=== PATIENT | male | born 1960 | race Caucasian/White ===

== ENCOUNTER → 2017-05-31 17:33 | Outpatient (CLI) | payer OTHER, SELFPAY ==
[2017-05-31 17:54] LABS: Basophils # 0.1 K/mm3 (0-0.2); Basophils % 0.7 % (0.1-2.0); Eosinophils # 0.4 K/mm3 (0.0-0.4); Eosinophils % 3.5 % (0.1-12.0); Hematocrit 45.7 % (42.0-52.0); Hemoglobin 15.3 g/dL (14.1-18.0); Lymphocytes # 3.2 K/mm3 (0.7-4.5); Lymphocytes % 28.6 K/mm3 (10-50); Mean Corpuscular HGB Conc 33.6 g/dL (31.8-35.4); Mean Corpuscular Volume 92.5 fl (80-94); Mean Platelet Volume 9.5 fl (7.4-10.4); Monocytes # 0.8 K/mm3 (0.1-1.0); Monocytes % 7.3 % (1.7-9.3); Neutrophils # 6.7 K/mm3 (1.8-7.8); Neutrophils % 59.9 % (37.0-80.0); Platelet Count 184 K/mm3 (142-424); Red Blood Count 4.94 M/mm3 (4.60-6.20); Red Cell Distribution Width 12.4 % (11.5-17.5); White Blood Count 11.1 K/mm3 (4.8-10.8)
[2017-05-31 18:34] LABS: Erythrocyte Sedimentation Rate 13 mm/hr (0-20)
[2017-05-31 19:29] LABS: Alanine Aminotransferase 43 U/L (12-78); Albumin Level 4.4 gm/dL (3.4-5.0); Albumin/Globulin Ratio 1.3 (1.1-1.8); Alkaline Phosphatase 84 U/L (46-116); Anion Gap 14.8 mEq/L (5-15); Aspartate Amino Transferase 27 U/L (15-37); Bilirubin,Total 0.7 mg/dL (0.2-1.0); Blood Urea Nitrogen 17 mg/dL (7-18); Calcium 9.4 mg/dL (8.5-10.1); Carbon Dioxide 27 mmol/L (21.0-32.0); Chloride 103 mmol/L (98-107); Chol/HDL Ratio 4.4 (1-3.5); Cholesterol 179 mg/dL (140-200); Creatinine,Serum 0.99 mg/dL (0.70-1.30); Estimated Glomerular Filt Rate 78 ml/min (>60); GFR (African American) 95 ML/MIN (>60); Globulin 3.4 gm/dl (1.3-3.2); Glucose 80 mg/dL (74-106); HDL Cholesterol 41 mg/dL (27-67); LDL Cholesterol 113 mg/dL (0-130); Potassium 4.8 mmoL/L (3.5-5.1); Sodium 140 mmol/L (136-145); Total Protein,Serum 7.8 gm/dL (6.4-8.2); Triglycerides 126 mg/dL (30-200); Uric Acid 7.8 mg/dL (2.6-7.2); VLDL Cholesterol 25 mg/dL (0-40)
== END ==
PROVIDERS: PCP Internal Medicine Adolescent Medicine; Visit Provider Internal Medicine Adolescent Medicine
DX: E78.5 Hyperlipidemia, unspecified (principal); E79.0 Hyperuricemia without signs of inflammatory arthritis and tophaceous disease
CPT/HCPCS: 36415; 80053; 80061; 84550; 85025; 85651

== ENCOUNTER → 2018-01-06 11:27 | Outpatient (CLI) | payer OTHER, SELFPAY ==
--- NOTE | 2018-01-06 | XR_ITS ---
XR chest 2V HISTORY: ITS.REASON: COUGH ORDERING PHYSICIAN: Wero Sharma MD PATIENT AGE: 57 years Technique: PA and lateral chest COMPARISON: None FINDINGS: No acute cardiopulmonary findings. No pneumonia. Suggestion of mild hyperexpansion with Minor chronic changes with slight coarsening markings toward the bases. Nonspecific low-density 9 mm nodule projects over the left second anterior rib end.. Although could be a granuloma No calcification appreciable, confirm such.. If history of smoking as suspected from overall appearance, CT chest to further evaluate this density would be warranted in this age patient with no previous chest film. Alternatively any outside chest films may be helpful to confirm stability as well if they can be obtained The heart is upper normal in size. Normal pulmonary vascularity. The shamika and mediastinal structures satisfactory. No pleural effusion chest wall satisfactory T-spine intact No acute bony abnormalities. IMPRESSION: Nothing definitely acute. No pneumonia. Mild chronic changes with Slight hyperexpansion slight coarsening markings. Incidental 9 mm low-density nodule at the left upper chest . Suggest CT chest to further evaluate, particularly if history of smoking .
[2018-01-06 12:15] LABS: Basophils # 0.1 K/mm3 (0-0.2); Basophils % 0.6 % (0.1-2.0); Eosinophils # 0.3 K/mm3 (0.0-0.4); Eosinophils % 3.2 % (0.1-12.0); Hematocrit 46.1 % (42.0-52.0); Hemoglobin 15.7 g/dL (14.1-18.0); Lymphocytes # 1.5 K/mm3 (0.7-4.5); Lymphocytes % 14.9 K/mm3 (10-50); Mean Corpuscular Hemoglobin 32.3 pg (27.0-31.2); Mean Corpuscular Volume 94.8 fl (80-94); Mean Platelet Volume 8.6 fl (7.4-10.4); Monocytes # 0.7 K/mm3 (0.1-1.0); Monocytes % 6.8 % (1.7-9.3); Neutrophils # 7.3 K/mm3 (1.8-7.8); Neutrophils % 74.4 % (37.0-80.0); Platelet Count 173 K/mm3 (142-424); Red Blood Count 4.87 M/mm3 (4.60-6.20); Red Cell Distribution Width 12.9 % (11.5-17.5); White Blood Count 9.8 K/mm3 (4.8-10.8)
[2018-01-06 13:45] LABS: Alanine Aminotransferase 41 U/L (12-78); Albumin/Globulin Ratio 1.2 (1.1-1.8); Alkaline Phosphatase 99 U/L (46-116); Anion Gap 15.6 mEq/L (5-15); Aspartate Amino Transferase 19 U/L (15-37); Bilirubin,Total 0.6 mg/dL (0.2-1.0); Blood Urea Nitrogen 16 mg/dL (7-18); Calcium 9.2 mg/dL (8.5-10.1); Carbon Dioxide 25 mmol/L (21.0-32.0); Chloride 105 mmol/L (98-107); Chol/HDL Ratio 4.3 (1-3.5); Cholesterol 189 mg/dL (140-200); Creatinine,Serum 0.95 mg/dL (0.70-1.30); Estimated Glomerular Filt Rate 82 ml/min (>60); GFR (African American) 99 ML/MIN (>60); Globulin 3.3 gm/dl (1.3-3.2); Glucose 102 mg/dL (74-106); HDL Cholesterol 44 mg/dL (27-67); LDL Cholesterol 127 mg/dL (0-130); Potassium 4.6 mmoL/L (3.5-5.1); Sodium 141 mmol/L (136-145); Total Protein,Serum 7.3 gm/dL (6.4-8.2); Triglycerides 90 mg/dL (30-200); VLDL Cholesterol 18 mg/dL (0-40)
== END ==
PROVIDERS: PCP Internal Medicine Adolescent Medicine; Referring Provider Internal Medicine Adolescent Medicine; Visit Provider Internal Medicine Adolescent Medicine
DX: I25.10 Atherosclerotic heart disease of native coronary artery without angina pectoris (principal); E78.5 Hyperlipidemia, unspecified; R05 Cough
CPT/HCPCS: 36415; 71046; 80053; 80061; 85025

== ENCOUNTER 2019-01-11 14:59 | Inpatient (IN) ==
[2019-01-11 15:15] LABS: Basophils # 0.1 K/mm3 (0-0.2); Basophils % 0.7 % (0.1-2.0); Eosinophils # 0.3 K/mm3 (0.0-0.4); Eosinophils % 2.6 % (0.1-12.0); Hematocrit 48.6 % (42.0-52.0); Hemoglobin 16.1 g/dL (14.1-18.0); Lymphocytes # 2.1 K/mm3 (0.7-4.5); Lymphocytes % 22.4 % (10-50); Mean Corpuscular HGB Conc 33.2 g/dL (31.8-35.4); Mean Platelet Volume 8.9 fl (7.4-10.4); Monocytes # 0.6 K/mm3 (0.1-1.0); Monocytes % 6.2 % (1.7-9.3); Neutrophils # 6.5 K/mm3 (1.8-7.8); Neutrophils % 68.1 % (37.0-80.0); Platelet Count 202 K/mm3 (142-424); Red Blood Count 5.11 M/mm3 (4.60-6.20); Red Cell Distribution Width 12.6 % (11.5-17.5); White Blood Count 9.5 K/mm3 (4.8-10.8)
[2019-01-11 15:19] LABS: Anion Gap 9.7 mEq/L (5-15); Calcium 9.1 mg/dL (8.5-10.1)
--- NOTE | 2019-01-11 17:24 | History & Physical Report ---
*Admission Date: 01/11/19 *Chief complaint: Chest pain *History of present illness: 58-year-old white male with history of stent placement in 2009, who has been noncompliant with his statin therapy, aspirin therapy and angiotensin receptor marina since May of this year, and has continued to smoke heavily as well as use heavy amounts of alcohol nightly, who presented to my office at the behest of his today with 3 days of worsening chest pain including some rest pain. Chest pain has been accelerating in nature and has been relieved with nitroglycerin. In the office he was felt to be at high risk of unstable angina and transferred from my office to the [facility] Propeller Mechanic. In the Propeller Mechanic he was urgently subjected to left heart catheterization with you below results: ANGIOGRAPHIC RESULTS The left main artery Has an ostial 50 to 70% stenosis The left anterior descending artery Has an ostial 80% stenosis followed by mid vessel concentric 40% stenosis The circumflex artery Is a dominant vessel and has a long concentric 80 to 90% stenosis in a large first obtuse marginal artery. The large second obtuse marginal artery is free of disease The right coronary artery Is a small nondominant vessel and subtotally occluded at mid vessel with AMALIA I-II flow distally The SERRATO ventriculogram reveals Preserved 60% The left ventricular end-diastolic pressure 10 mmHg IMPRESSION Severe ostial left main disease accompanied by severe three-vessel coronary artery disease as described above Preserved and normal ejection fraction Normal left ventricular end-diastolic pressure PLAN 1. Patient will be transferred to [facility] and undergo surgical revascularization 2. Statin therapy goal LDL less than 55 3. Continue nitrates and beta-blockers for angina relief 4. Avoidance of tobacco products 5. Daily aspirin 81 mg Because of bed availability at [facility] patient will be admitted here overnight until bed available to be transferred for CABG procedure. Patient is current pleasant, talkative and pain-free. [facility] History I have reviewed the patient's past medical history: Yes Medical History: Reports:: Atherosclerotic Heart Disease, Coronary Artery Dis ease, Hypertension Denies:: Cancer, Diabetes Mellitus Type 1, Diabetes Mellitus Type 2, Internal Pacemaker, MRSA, Seizures *Have you ever received a pneumonia vaccine?: No *Have you received a flu vaccine this season?: No Other Surgeries: Yes: Other (elbow fracture repair). No: Pacemaker Amputation: No Fractures: Yes (elbow) - *Social History Educational Level: Completed Grade School Smoking Status: Current every day smoker Tobacco Type: cigarettes # Packs/Day (cigarettes): 2 Alcohol Intake: current Alcohol Intake Frequency:: 3 or more drinks per day *Occupational Status:: employed Housing: house Household Members: significant other *Travel in the last 8 weeks: None - Psychiatric History Expresses thoughts of harming self/others: None Suicide Plan Description: No Plan Family Hx:: No significant family history Review of Systems - Review of Systems Review of systems:: pertinent systems reviewed and negative unless documented below Meds Home Medications Medication Instructions Recorded Confirmed Type Aspirin [Aspir 81] 81 mg PO DAILY 01/11/19 01/11/19 History Atorvastatin Calcium [Atorvastatin 40 mg PO HS 01/11/19 01/11/19 History 40mg Tab] Losartan Potassium 100 mg .ROUTE DAILY 01/11/19 01/11/19 History Allergies Allergy/AdvReac Type Severity Reaction Status Date / Time clopidogrel [From Plavix] AdvReac Verified 01/11/19 15:06 Exam Vital signs and Labs for Last 24 Hours: Temp Pulse Resp BP Pulse Ox 97.8 F 74 17 114/70 92 L 01/11/19 16:30 01/11/19 17:00 01/11/19 17:00 01/11/19 17:00 01/11/19 17:00 Laboratory Results - last 24 hr 01/11/19 15:05: WBC 9.5, RBC 5.11, Hgb 16.1, Hct 48.6, MCV 95.0 H, MCH 31.5 H, MCHC 33.2, RDW 12.6, Plt Count 202, MPV 8.9, Neut % (Auto) 68.1, Lymph % (Auto) 22.4, Kane % (Auto) 6.2, Eos % (Auto) 2.6, Baso % (Auto) 0.7, Neut # (Auto) 6.5, Lymph # (Auto) 2.1, Kane # (Auto) 0.6, Eos # (Auto) 0.3, Baso # (Auto) 0.1 01/11/19 15:05: Sodium 137, Potassium 3.7, Chloride 103, Carbon Dioxide 28, Anion Gap 9.7, BUN 17, Creatinine 0.83, Estimated Creat Clear 153, Estimated GFR 95, Est GFR ( Amer) 116, Glucose 111 H, Calcium 9.1 I & O for Last 24 hours: Intake & Output 01/09/19 01/10/19 01/11/19 01/12/19 11:59 11:59 11:59 11:59 Weight 242 lb Narrative: Patient is alert, oriented x3. Pleasant and talkative. Cranial nerves symmetric. No JVD. Lungs are clear, heart rate regular. Abdomen soft. Extremities warm and well-perfused. Assessment and Plan (1) 3-vessel coronary artery disease Current visit: Yes Status: Acute Category: Medical Code(s): I25.10 - Atherosclerotic heart disease of ruby coronary artery without angina pectoris Plan will be to observe in [facility] until bed available for transfer to [facility]. Alcohol withdrawal precautions. Nitroglycerin as needed for pain control.
--- NOTE | 2019-01-12 08:32 | Discharge Summary ---
General - General Admission date:: 01/11/19 Discharge date: 01/12/19 HPI HPI: 58-year-old white male with history of stent placement in 2009, who has been noncompliant with his statin therapy, aspirin therapy and angiotensin receptor marina since May of this year, and has continued to smoke heavily as well as use heavy amounts of alcohol nightly, who presented to my office at the behest of his today with 3 days of worsening chest pain including some rest pain. Chest pain has been accelerating in nature and has been relieved with nitroglycerin. In the office he was felt to be at high risk of unstable angina and transferred from my office to the [facility] Line Up Worker. In the Line Up Worker he was urgently subjected to left heart catheterization with you below results: ANGIOGRAPHIC RESULTS The left main artery Has an ostial 50 to 70% stenosis The left anterior descending artery Has an ostial 80% stenosis followed by mid vessel concentric 40% stenosis The circumflex artery Is a dominant vessel and has a long concentric 80 to 90% stenosis in a large first obtuse marginal artery. The large second obtuse marginal artery is free of disease The right coronary artery Is a small nondominant vessel and subtotally occluded at mid vessel with AMALIA I-II flow distally The SERRATO ventriculogram reveals Preserved 60% The left ventricular end-diastolic pressure 10 mmHg IMPRESSION Severe ostial left main disease accompanied by severe three-vessel coronary artery disease as described above Preserved and normal ejection fraction Normal left ventricular end-diastolic pressure PLAN 1. Patient will be transferred to [facility] and undergo surgical revascularization 2. Statin therapy goal LDL less than 55 3. Continue nitrates and beta-blockers for angina relief 4. Avoidance of tobacco products 5. Daily aspirin 81 mg Because of bed availability at [facility] patient will be admitted here overnight until bed available to be transferred for CABG procedure. Patient is current pleasant, talkative and pain-free. Hospital Course Hospital Course: Patient was observed overnight, no incidence on telemetry monitoring. No chest pain. Radial cath site looked good this morning. Bed has become available at the [facility] at [facility] and patient will be transferred there for evaluation for three-vessel CABG. Objective Vital signs: Temp Pulse Resp BP Pulse Ox 97.8 F 68 19 124/76 94 L 01/12/19 08:00 01/12/19 08:00 01/12/19 08:00 01/12/19 08:00 01/12/19 08:00 Narrative: Alert, oriented x3. Abdomen soft and nontender. Heart rate regular without murmurs. Lungs are clear. Neurologically intact. Skin warm and well-perfused. ENT exam clear. No JVD. Results Labs on day of discharge: Labs from last 24 hours 01/11/19 01/11/19 15:05 15:05 WBC 9.5 RBC 5.11 Hgb 16.1 Hct 48.6 MCV 95.0 H MCH 31.5 H MCHC 33.2 RDW 12.6 Plt Count 202 MPV 8.9 Neut % (Auto) 68.1 Lymph % (Auto) 22.4 Highland % (Auto) 6.2 Eos % (Auto) 2.6 Baso % (Auto) 0.7 Neut # (Auto) 6.5 Lymph # (Auto) 2.1 Highland # (Auto) 0.6 Eos # (Auto) 0.3 Baso # (Auto) 0.1 Sodium 137 Potassium 3.7 Chloride 103 Carbon Dioxide 28 Anion Gap 9.7 BUN 17 Creatinine 0.83 Estimated Creat Clear 153 Estimated GFR 95 Est GFR ( Amer) 116 Glucose 111 H Calcium 9.1 DS: Diagnosis - Discharge Diagnosis (1) 3-vessel coronary artery disease Status: Acute Discharge Plan - Patient Discharge Instructions ACTIVITY: Continue current activity DIET: continue same diet Patient Instructions: DI for Cardiac Catheterization - Follow up Plan Follow up with: Kyaw Shaw [Referring] - Disposition: Xfer Short-Term Hosp Home Medications: Home Medications Medication Instructions Recorded Confirmed Type Aspirin [Aspir 81] 81 mg PO DAILY 01/11/19 01/11/19 History Atorvastatin Calcium [Atorvastatin 40 mg PO HS 01/11/19 01/11/19 History 40mg Tab] Losartan Potassium 100 mg .ROUTE DAILY 01/11/19 01/11/19 History Prescriptions/Medication Reconciliation: Continued Atorvastatin Calcium [Atorvastatin 40mg Tab] 40 mg PO HS Losartan Potassium 100 mg .ROUTE DAILY Aspirin [Aspir 81] 81 mg PO DAILY - Problem Reconciliation Problems Reviewed?: Yes
== END 2019-01-12 09:24 | disposition short-term general hospital (02) | DRG 287 ==
LOC: CATHLAB 14:59 → 2ND 16:45
PROVIDERS: ADMIT Internal Medicine Adolescent Medicine; ATTEND Internal Medicine Adolescent Medicine
CPT/HCPCS: 80048; 85025; 93458; 99152; C1725; C1760; C1769; J1644; Q9967

== ENCOUNTER 2019-02-26 14:21 | Outpatient (RCR) | payer OTHER, SELFPAY | END 2019-04-15 13:20 | disposition home or self-care (01) | LOC: PT 14:21 | PROVIDERS: Visit Provider Thoracic Surgery (Cardiothoracic Vascular Surgery) | DX: Z95.1 Presence of aortocoronary bypass graft (principal) | CPT/HCPCS: 93798 ==

== ENCOUNTER → 2019-04-29 12:10 | Outpatient (CLI) | payer OTHER, SELFPAY ==
[2019-04-29 12:31] LABS: Basophils # 0.1 K/mm3 (0-0.2); Basophils % 0.6 % (0.1-2.0); Eosinophils # 0.3 K/mm3 (0.0-0.4); Hematocrit 49.3 % (42.0-52.0); Hemoglobin 15.6 g/dL (14.1-18.0); Lymphocytes # 2.8 K/mm3 (0.7-4.5); Lymphocytes % 28.9 % (10-50); Mean Corpuscular HGB Conc 31.7 g/dL (31.8-35.4); Mean Corpuscular Hemoglobin 30.6 pg (27.0-31.2); Mean Corpuscular Volume 96.3 fl (80-94); Mean Platelet Volume 10.2 fl (7.4-10.4); Monocytes # 0.6 K/mm3 (0.1-1.0); Monocytes % 6.4 % (1.7-9.3); Neutrophils # 5.8 K/mm3 (1.8-7.8); Neutrophils % 61.1 % (37.0-80.0); Platelet Count 214 K/mm3 (142-424); Red Blood Count 5.12 M/mm3 (4.60-6.20); Red Cell Distribution Width 13.1 % (11.5-17.5); White Blood Count 9.5 K/mm3 (4.8-10.8)
[2019-04-29 14:17] LABS: Alanine Aminotransferase 31 U/L (12-78); Albumin/Globulin Ratio 1.1 (1.1-1.8); Alkaline Phosphatase 95 U/L (46-116); Anion Gap 15.9 mEq/L (5-15); Aspartate Amino Transferase 17 U/L (15-37); Bilirubin,Total 0.4 mg/dL (0.2-1.0); Blood Urea Nitrogen 16 mg/dL (7-18); Calcium 9.3 mg/dL (8.5-10.1); Carbon Dioxide 25 mmol/L (21.0-32.0); Chloride 104 mmol/L (98-107); Chol/HDL Ratio 3.7 (1-3.5); Cholesterol 158 mg/dL (140-200); Creatinine,Serum 0.87 mg/dL (0.70-1.30); Estimated Glomerular Filt Rate 90 ml/min (>60); GFR (African American) 109 ML/MIN (>60); Globulin 3.7 gm/dl (1.3-3.2); Glucose 81 mg/dL (74-106); HDL Cholesterol 43 mg/dL (27-67); LDL Cholesterol 90 mg/dL (0-130); Potassium 4.9 mmoL/L (3.5-5.1); Sodium 140 mmol/L (136-145); Total Protein,Serum 7.7 gm/dL (6.4-8.2); Triglycerides 126 mg/dL (30-200); VLDL Cholesterol 25 mg/dL (0-40)
== END ==
PROVIDERS: Visit Provider Internal Medicine Adolescent Medicine
DX: E78.5 Hyperlipidemia, unspecified (principal); K08.9 Disorder of teeth and supporting structures, unspecified
CPT/HCPCS: 36415; 80053; 80061; 85025

== ENCOUNTER → 2020-01-17 13:26 | Outpatient (CLI) | payer OTHER, SELFPAY ==
--- NOTE | 2020-01-17 13:27 | CA_ITS ---
APPROVED REPORT EXAM: Comprehensive 2D, Doppler, and color-flow Echocardiogram Computer Laboratory Technician: Jyoti Rodriguez CRT Ht: 5 ft 10 in Wt: 244lbs BSA: 2.27 BP: 141/77 mmHg Indications: Obesity, Palpitations, Peripheral Edema, Hyperlipidemia, Hypertension/HDD, stents, CABG, GERD, 2D Dimensions LVOT 2.04 cm (M/F) 1.5-2.5 M-Mode Dimensions RVDd 2.49 cm (0.9-2.6) LVDd 5.67 cm (3.5-5.7) LVDs 4.11 cm (3.5-5.7) IVSd 1.41 cm (0.6-1.1) PWd 1.10 cm (0.6-1.1) EF (Teich) 52.80% FS 27.50% EDV (Teich) 158.10 mL ESV (Teich) 74.70 mL LV Diastology E/A Ratio 0.92 Mitral Valve MV A Velocity 67.00 (40-130 cm/s) Left Ventricle Left atrium is mildly enlarged, left ventricle is normal size, mild concentric left ventricular hypertrophy, visually estimated ejection fraction approximately 50%, there is marked hypokinesis involving the inferior basal and inferior wall. Grade 1 diastolic dysfunction seen without tissue Doppler evidence of raise left atrial pressure. Right Ventricle Right atrium and right ventricular mildly enlarged with normal contractility. Aortic Valve Aortic valve is thickened and calcified, there is no aortic stenosis or aortic insufficiency. Mitral Valve Mitral valve is grossly normal, there is mild mitral regurgitation. Tricuspid Valve Tricuspid valve is grossly normal, there is mild tricuspid regurgitation, tricuspid regurgitation jet velocity is inadequate for calculation of the right ventricular systolic pressure. Pulmonic Valve Pulmonic valve is poorly visualized. Great Vessels Aortic root is normal size. Pericardium No significant pericardial effusion noted. Conclusion 1. Biatrial enlargement, normal left ventricular size, mild concentric left ventricular hypertrophy, visually estimated ejection fraction of 50% with segmental wall motion abnormality described above, grade 1 diastolic dysfunction seen without tissue Doppler evidence of raise left atrial pressure. 2. Mildly enlarged right ventricle with normal contractility. 3. Mild mitral and tricuspid regurgitation. 4. No significant pericardial effusion noted. Electronically signed by : Bijan Delgado, 01/19/2020 21:38:07
== END ==
PROVIDERS: PCP Internal Medicine Adolescent Medicine; Visit Provider Internal Medicine Cardiovascular Disease
DX: I25.10 Atherosclerotic heart disease of native coronary artery without angina pectoris (principal); Z95.1 Presence of aortocoronary bypass graft
CPT/HCPCS: 93306

== ENCOUNTER → 2020-03-18 16:10 | Outpatient (CLI) | payer OTHER, SELFPAY ==
[2020-03-18 17:12] LABS: Basophils # 0.1 K/mm3 (0-0.2); Basophils % 0.4 % (0.1-2.0); Eosinophils # 0.2 K/mm3 (0.0-0.4); Eosinophils % 2.1 % (0.1-12.0); Hematocrit 45.5 % (42.0-52.0); Hemoglobin 15.5 g/dL (14.1-18.0); Lymphocytes # 2.8 K/mm3 (0.7-4.5); Lymphocytes % 24.7 % (10-50); Mean Corpuscular HGB Conc 34.1 g/dL (31.8-35.4); Mean Corpuscular Hemoglobin 31.6 pg (27.0-31.2); Mean Corpuscular Volume 92.6 fl (80-94); Mean Platelet Volume 9.3 fl (7.4-10.4); Monocytes % 8.7 % (1.7-9.3); Neutrophils # 7.4 K/mm3 (1.8-7.8); Neutrophils % 64.1 % (37.0-80.0); Platelet Count 191 K/mm3 (142-424); Red Blood Count 4.91 M/mm3 (4.60-6.20); Red Cell Distribution Width 13.1 % (11.5-17.5); White Blood Count 11.5 K/mm3 (4.8-10.8)
[2020-03-18 17:44] LABS: Alanine Aminotransferase 23 U/L (12-78); Albumin Level 4.2 g/dl (3.5-5.0); Albumin/Globulin Ratio 1.4 (1.1-1.8); Alkaline Phosphatase 94 U/L (38-126); Aspartate Amino Transferase 26 U/L (17-59); Bilirubin,Total 0.7 mg/dl (0.2-1.3); Blood Urea Nitrogen 15 mg/dl (9-20); Calcium 9.9 mg/dl (8.4-10.2); Carbon Dioxide 27 mmol/L (22.0-30.0); Chloride 105 mmol/L (98-107); Chol/HDL Ratio 3.7 (1-3.5); Cholesterol 142 mg/dl (140-200); Estimated Glomerular Filt Rate 87 ml/min (>60); GFR (African American) 105 ML/MIN (>60); Globulin 3.1 g/dL (1.3-3.2); Glucose 86 mg/dl (74-100); HDL Cholesterol 38 mg/dl (40-60); Sodium 140 mmol/L (136-145); Total Protein,Serum 7.3 g/dl (6.3-8.2); Triglycerides 124 mg/dl (30-150); Uric Acid 6.6 mg/dl (3.5-8.5); VLDL Cholesterol 25 mg/dL (0-40)
[2020-03-18 17:55] LABS: Direct LDL Cholesterol 83.48 mg/dL (100-129)
== END ==
PROVIDERS: Visit Provider Internal Medicine Adolescent Medicine
DX: I25.10 Atherosclerotic heart disease of native coronary artery without angina pectoris (principal); E78.5 Hyperlipidemia, unspecified; M10.9 Gout, unspecified
CPT/HCPCS: 36415; 80053; 80061; 84550; 85025

== ENCOUNTER → 2020-07-23 16:11 | Outpatient (CLI) | payer OTHER, SELFPAY ==
[2020-07-23 17:33] LABS: Chloride 107 mmol/L (98-107); Potassium 4.9 mmoL/L (3.5-5.1); Sodium 141 mmol/L (136-145)
[2020-07-23 17:36] LABS: Anion Gap 10.9 mEq/L (5-15); Blood Urea Nitrogen 23 mg/dl (9-20); Calcium 10.3 mg/dl (8.4-10.2); Carbon Dioxide 28 mmol/L (22.0-30.0); Estimated Glomerular Filt Rate 86 ml/min (>60); GFR (African American) 105 ML/MIN (>60); Glucose 76 mg/dl (74-100)
== END ==
PROVIDERS: Visit Provider Internal Medicine Cardiovascular Disease
DX: E78.5 Hyperlipidemia, unspecified (principal); I10 Essential (primary) hypertension; I25.10 Atherosclerotic heart disease of native coronary artery without angina pectoris; I25.2 Old myocardial infarction; Z95.1 Presence of aortocoronary bypass graft
CPT/HCPCS: 36415; 80048

== ENCOUNTER → 2020-10-15 07:04 | Outpatient (CLI) | payer OTHER, SELFPAY ==
[2020-10-15 07:44] LABS: Basophils # 0.1 K/mm3 (0-0.2); Basophils % 0.5 % (0.1-2.0); Eosinophils # 0.2 K/mm3 (0.0-0.4); Eosinophils % 2.2 % (0.1-12.0); Hemoglobin 15.5 g/dL (14.1-18.0); Lymphocytes % 19.3 % (10-50); Mean Corpuscular HGB Conc 34.5 g/dL (31.8-35.4); Mean Corpuscular Hemoglobin 31.7 pg (27.0-31.2); Mean Corpuscular Volume 91.9 fl (80-94); Mean Platelet Volume 9.6 fl (7.4-10.4); Monocytes # 0.8 K/mm3 (0.1-1.0); Neutrophils # 7.1 K/mm3 (1.8-7.8); Neutrophils % 69.8 % (37.0-80.0); Platelet Count 175 K/mm3 (142-424); Red Cell Distribution Width 13.1 % (11.5-17.5); White Blood Count 10.2 K/mm3 (4.8-10.8)
[2020-10-15 08:20] LABS: Alanine Aminotransferase 32 U/L (12-78); Albumin Level 4.2 g/dl (3.5-5.0); Albumin/Globulin Ratio 1.5 (1.1-1.8); Alkaline Phosphatase 85 U/L (38-126); Anion Gap 10.8 mEq/L (5-15); Aspartate Amino Transferase 31 U/L (17-59); Bilirubin,Total 0.6 mg/dl (0.2-1.3); Blood Urea Nitrogen 23 mg/dl (9-20); Calcium 9.1 mg/dl (8.4-10.2); Carbon Dioxide 23 mmol/L (22.0-30.0); Chloride 110 mmol/L (98-107); Chol/HDL Ratio 4.2 (1-3.5); Cholesterol 142 mg/dl (140-200); Estimated Glomerular Filt Rate 99 ml/min (>60); GFR (African American) 120 ML/MIN (>60); Globulin 2.8 g/dL (1.3-3.2); Glucose 104 mg/dl (74-100); HDL Cholesterol 34 mg/dl (40-60); Potassium 4.8 mmoL/L (3.5-5.1); Sodium 139 mmol/L (136-145); Triglycerides 102 mg/dl (30-150); VLDL Cholesterol 20 mg/dL (0-40)
[2020-10-15 08:29] LABS: NT Pro Brain Natriuretic Pep. 154 pg/mL (0-125)
[2020-10-15 08:31] LABS: Direct LDL Cholesterol 80.93 mg/dL (100-129)
[2020-10-15 08:50] LABS: Thyroid Stimulating Hormone 2.03 uIU/mL (0.465-4.68)
[2020-10-15 12:24] LABS: Hemoglobin A1C 5.6 % (4.0-6.0)
== END ==
PROVIDERS: Visit Provider Internal Medicine Adolescent Medicine
DX: I10 Essential (primary) hypertension (principal); E78.5 Hyperlipidemia, unspecified; R60.0 Localized edema; R79.89 Other specified abnormal findings of blood chemistry
CPT/HCPCS: 36415; 80053; 80061; 83036; 83880; 84443; 85025

== ENCOUNTER → 2021-02-01 10:47 | Outpatient (CLI) | payer OTHER, SELFPAY ==
[2021-02-01 11:32] LABS: Basophils # 0.1 K/mm3 (0-0.2); Basophils % 0.9 % (0.1-2.0); Eosinophils # 0.3 K/mm3 (0.0-0.4); Eosinophils % 2.7 % (0.1-12.0); Hematocrit 49.9 % (42.0-52.0); Hemoglobin 16.6 g/dL (14.1-18.0); Lymphocytes # 2.5 K/mm3 (0.7-4.5); Lymphocytes % 25.2 % (10-50); Mean Corpuscular HGB Conc 33.3 g/dL (31.8-35.4); Mean Corpuscular Hemoglobin 32.2 pg (27.0-31.2); Mean Corpuscular Volume 96.6 fl (80-94); Mean Platelet Volume 9.1 fl (7.4-10.4); Monocytes # 0.7 K/mm3 (0.1-1.0); Monocytes % 7.3 % (1.7-9.3); Neutrophils # 6.3 K/mm3 (1.8-7.8); Neutrophils % 64.1 % (37.0-80.0); Platelet Count 180 K/mm3 (142-424); Red Blood Count 5.16 M/mm3 (4.60-6.20); Red Cell Distribution Width 12.7 % (11.5-17.5); White Blood Count 9.8 K/mm3 (4.8-10.8)
[2021-02-01 13:26] LABS: Chloride 104 mmol/L (98-107); Potassium 5.1 mmoL/L (3.5-5.1); Sodium 139 mmol/L (136-145)
[2021-02-01 13:28] LABS: Alanine Aminotransferase 40 U/L (12-78); Aspartate Amino Transferase 36 U/L (17-59); Blood Urea Nitrogen 12 mg/dl (9-20); Estimated Glomerular Filt Rate 99 ml/min (>60); GFR (African American) 120 ML/MIN (>60)
[2021-02-01 13:29] LABS: Albumin Level 4.1 g/dl (3.5-5.0); Albumin/Globulin Ratio 1.5 (1.1-1.8); Alkaline Phosphatase 94 U/L (38-126); Anion Gap 14.1 mEq/L (5-15); Bilirubin,Total 0.3 mg/dl (0.2-1.3); Calcium 9.5 mg/dl (8.4-10.2); Carbon Dioxide 26 mmol/L (22.0-30.0); Cholesterol 136 mg/dl (140-200); Globulin 2.8 g/dL (1.3-3.2); Glucose 85 mg/dl (74-100); HDL Cholesterol 45 mg/dl (40-60); Total Protein,Serum 6.9 g/dl (6.3-8.2); Triglycerides 114 mg/dl (30-150); VLDL Cholesterol 23 mg/dL (0-40)
[2021-02-01 13:40] LABS: Direct LDL Cholesterol 74.88 mg/dL (100-129)
== END ==
PROVIDERS: Visit Provider Internal Medicine Adolescent Medicine
DX: I25.10 Atherosclerotic heart disease of native coronary artery without angina pectoris (principal); E78.5 Hyperlipidemia, unspecified
CPT/HCPCS: 36415; 80053; 80061; 85025

== ENCOUNTER → 2021-05-26 13:51 | Outpatient (CLI) | payer OTHER, SELFPAY ==
[2021-05-26 14:16] LABS: Basophils # 0.1 K/mm3 (0-0.2); Basophils % 1.3 % (0.1-2.0); Eosinophils # 0.3 K/mm3 (0.0-0.4); Eosinophils % 2.4 % (0.1-12.0); Hematocrit 51.2 % (42.0-52.0); Hemoglobin 16.6 g/dL (14.1-18.0); Lymphocytes # 2.8 K/mm3 (0.7-4.5); Lymphocytes % 26.3 % (10-50); Mean Corpuscular HGB Conc 32.5 g/dL (31.8-35.4); Mean Corpuscular Hemoglobin 31.1 pg (27.0-31.2); Mean Corpuscular Volume 95.7 fl (80-94); Mean Platelet Volume 9.4 fl (7.4-10.4); Monocytes # 0.7 K/mm3 (0.1-1.0); Neutrophils # 6.7 K/mm3 (1.8-7.8); Neutrophils % 62.9 % (37.0-80.0); Platelet Count 189 K/mm3 (142-424); Red Blood Count 5.35 M/mm3 (4.60-6.20); White Blood Count 10.7 K/mm3 (4.8-10.8)
[2021-05-26 15:27] LABS: Alanine Aminotransferase 33 U/L (12-78); Albumin Level 4.4 g/dl (3.5-5.0); Albumin/Globulin Ratio 1.6 (1.1-1.8); Alkaline Phosphatase 94 U/L (38-126); Anion Gap 13.5 mEq/L (5-15); Aspartate Amino Transferase 31 U/L (17-59); Bilirubin,Total 0.7 mg/dl (0.2-1.3); Blood Urea Nitrogen 15 mg/dl (9-20); Calcium 9.5 mg/dl (8.4-10.2); Carbon Dioxide 24 mmol/L (22.0-30.0); Chloride 105 mmol/L (98-107); Cholesterol 155 mg/dl (140-200); Estimated Glomerular Filt Rate 99 ml/min (>60); GFR (African American) 119 ML/MIN (>60); Globulin 2.7 g/dL (1.3-3.2); Glucose 84 mg/dl (74-100); HDL Cholesterol 39 mg/dl (40-60); Potassium 4.5 mmoL/L (3.5-5.1); Sodium 138 mmol/L (136-145); Total Protein,Serum 7.1 g/dl (6.3-8.2); Triglycerides 135 mg/dl (30-150); VLDL Cholesterol 27 mg/dL (0-40)
[2021-05-26 15:39] LABS: Direct LDL Cholesterol 91.52 mg/dL (100-129)
[2021-05-26 16:15] LABS: Hemoglobin A1C 5.8 % (4.0-6.0)
== END ==
PROVIDERS: Visit Provider Internal Medicine Adolescent Medicine
DX: I25.10 Atherosclerotic heart disease of native coronary artery without angina pectoris (principal); E78.5 Hyperlipidemia, unspecified; E11.9 Type 2 diabetes mellitus without complications; Z79.84 Long term (current) use of oral hypoglycemic drugs
CPT/HCPCS: 36415; 80053; 80061; 83036; 85025

== ENCOUNTER → 2021-08-18 12:21 | Outpatient (CLI) | payer OTHER, SELFPAY | PROVIDERS: Visit Provider Surgery | DX: Z01.812 Encounter for preprocedural laboratory examination (principal); Z11.52 Encounter for screening for COVID-19; Z12.11 Encounter for screening for malignant neoplasm of colon | CPT/HCPCS: C9803; U0003; U0005 ==

== ENCOUNTER 2021-08-20 10:23 | Day surgery (SDC) | payer OTHER, SELFPAY ==
[2021-08-17 09:51] VITALS: BMI 36.9
[2021-08-20 10:39] VITALS: BP 164/81; PULSE 81; RESP 18; TEMP 36.6; O2SAT 97
[2021-08-20 12:15] VITALS: O2SAT 97
--- NOTE | 2021-08-20 12:24 | P.PN_ITS ---
[facility] Anesthesia Checklist - Patient Identification Patient Identification: Arm Band, Verbal (Name & ) - Structural Data Admitted From: Home Planned Operative Procedure/s: Colonoscopy Consent for Planned Operative Procedure(s) Verified: Yes Verified Documents: Surgical Consent - NPO Status Verified Time NPO: 09:00 - Airway Assessment C-Spine Mobility Assessed: Yes TMJ Mobility Assessed: Yes Dentition: Good Dentition - Neurological Assessment Level of Consciousness: Awake, Alert, Appropriate - Anesthesia Plan Anesthesia Risk discussed: Yes ASA Class: III Anesthesia Type: MAC [facility] History I have reviewed the patient's past medical history: Yes Medical History: Reports:: Atherosclerotic Heart Disease, Atrial Fibrillation, Coronary Artery Disease, Gastroesophageal Reflux Disease(GERD), Hyperlipidemia, Hypertension, Palpitations Denies:: Cancer, Diabetes Mellitus Type 1, Diabetes Mellitus Type 2, Internal Pacemaker, MRSA, Seizures *Have you ever received a pneumonia vaccine?: Yes *Have you received a flu vaccine this season?: Yes Anesthesia experience/problems:: no issues Other Surgeries: Yes: Cardiac Catheterization, Cardiac Surgery, Other (elbow fracture repair). No: Pacemaker Amputation: No Fractures: Yes (elbow orif) - *Social History Last grade of school completed: High school graduate Smoking Status: Current every day smoker Tobacco Type: cigarettes # Packs/Day (cigarettes): 1 Alcohol Intake: former Alcohol Intake Frequency:: 3 or more drinks per day Substance Use Type: denies use *Occupational Status:: employed Housing: house Household Members: significant other *Travel in the last 8 weeks: None Family Hx:: No significant family history
--- NOTE | 2021-08-20 13:44 | HMH.SCOPE ---
- Procedure: Date: 08/20/21 Patient Date of :: 1960 Procedure Performed:: Total colonoscopy with numerous polypectomy Indications:: Patient is a 61-year-old male referred by Dr. Wero Sharma for colonoscopy. He has never had prior colonoscopy. He underwent Cologuard testing which was positive. Performing Provider:: Darrel Wyatt MD Referring Provider:: Wero Sharma MD Sedation:: MAC sedation Procedure:: Patient was taken to endoscopy procedure room. He was positioned in lateral decubitus position. Adequate intravenous sedation was achieved with anesthesia titration of propofol. Digital examination was performed which revealed normal sphincter tone. He did have an enlarged prostate somewhat asymmetrically with the right lobe being somewhat greater than the left. Variable stiffness Olympus colonoscope was inserted via the anus. It was advanced to the cecum. There was some particulate liquid stool throughout the colon. Initially visualization was fair but decent visualization was achieved with thorough irrigation and suctioning. As the colonoscope was slowly withdrawn through the colon multiple small polyps were encountered. These were removed by variety of technique. Please see findings below. He did have some diverticulosis. Retroflexion revealed no evidence of any pathologic internal hemorrhoids. Colonoscope was withdrawn. Note: Procedure time from insertion of colonoscope to removal was 81 minutes. Findings:: Cecal polyp. Removed with cold snare. Ascending colon polyp x2 removed with snare and biopsy. Polyp removed with snare appears sessile possibly consistent with relatively large serrated adenoma. Transverse colon polyp x3 removed with cold snare Descending colon polyp x6 removed with cold snare Sigmoid colon polyp x4 removed with cold snare Distal sigmoid polyp possible traction polyp, removed with hot snare Hyperplastic appearing rectosigmoid polyps x6 3 removed with biopsy and 3 removed with cold snare Rectal polyp x3 removed with cold snare He had a total of 26 polyps removed. Most concerning was actually the cecal polyp removed with snare. Some scattered diverticulosis Mildly asymmetrically enlarged prostate Recommendations:: Follow-up anoscopy pending pathology Complications:: None immediately apparent Estimated blood obtained (mL): 3
[2021-08-20 13:46] VITALS: BP 137/73; PULSE 67; RESP 16; TEMP 36.3; O2SAT 97
[2021-08-20 13:56] VITALS: BP 137/73; PULSE 63; RESP 16; TEMP 36.3; O2SAT 97
[2021-08-20 14:06] VITALS: BP 143/90; PULSE 66; RESP 16; O2SAT 96
[2021-08-20 14:16] VITALS: BP 151/66; PULSE 66; RESP 16; O2SAT 98
== END 2021-08-20 14:16 | disposition home or self-care (01) ==
LOC: OUTP 10:24
PROVIDERS: PCP Internal Medicine Adolescent Medicine; Visit Provider Surgery
PROC: 0DJD8ZZ Inspection of Lower Intestinal Tract, Via Natural or Artificial Opening Endoscopic (ICD-10-PCS; CPT 45385; principal; 2021-08-20 11:30)
DX: R19.5 Other fecal abnormalities (principal); K63.5 Polyp of colon; K57.30 Diverticulosis of large intestine without perforation or abscess without bleeding; N40.0 Benign prostatic hyperplasia without lower urinary tract symptoms; I25.10 Atherosclerotic heart disease of native coronary artery without angina pectoris; I48.91 Unspecified atrial fibrillation; K21.9 Gastro-esophageal reflux disease without esophagitis; E78.5 Hyperlipidemia, unspecified; I10 Essential (primary) hypertension; R00.2 Palpitations; Z72.0 Tobacco use; Z88.8 Allergy status to other drugs, medicaments and biological substances; Z79.82 Long term (current) use of aspirin; Z79.899 Other long term (current) drug therapy
CPT/HCPCS: 45385; J2704

== ENCOUNTER 2022-12-17 09:46 | Emergency (ER) | payer MEDICAID, SELFPAY ==
[2022-12-17 09:47] VITALS: BP 133/77; PULSE 60; RESP 16; TEMP 36.7; O2SAT 97; BMI 36.1
--- NOTE | 2022-12-17 10:07 | EXP.UTC ---
Discharge Plan Disposition Patient Disposition: Home, Self-Care Condition: Good Prescriptions Prescriptions: New ciprofloxacin HCl 0.3 % drops See Rx Instructions .ROUTE .COMPLEX Qty: 5 0RF Rx Instructions: put 1 drp in left eye every 2hr x2days; then 4 times/day x5days No Action nitroglycerin 0.4 mg tablet, sublingual 0.4 mg SUBLINGUAL Q5M PRN (Reason: chest pain) Qty: 25 0RF Rx Instructions: until response; do not exceed 3 doses per episode metoprolol tartrate 25 mg tablet 37.5 mg PO BID atorvastatin 40 MG tablet 40 mg PO HS aspirin 81 MG tablet,delayed release (DR/EC) 81 mg PO DAILY losartan 25 MG tablet See Rx Instructions .Route .COMPLEX Rx Instructions: TAKE ONE TABLET BY MOUTH EVERY DAY peg 3350-electrolytes 4,000 ML recon soln 240 ml PO Q10M Rx Instructions: until fecal effluent is clear Referrals Follow up/Referrals: Wero Sharma MD [Primary Care Provider] - See instructions Activity Restrictions/Add. Instructions Additional Instructions/Restrictions: Use the eye drops as directed. Strict hand washing in the house hold, because conjunctivitis is very contagious. Follow up with your regular doctor. GO TO THE ER FOR ANY WORSENING SYMPTOMS OR CONCERNS Clinical Impressions Clinical Impression: Conjunctivitis of left eye Instructions Patient Instructions: How to Instill Eye Drops, Conjunctivitis, DI for Conjunctivitis Discharge ED Provider: Santiago Tony [facility] General Stated complaint: eyes red,itchy,pain Mode of Arrival: Ambulatory Source of Information: Patient Limitations: No Limitations Time Seen by Provider: 12/17/22 10:07 HEENT Symptoms (Recalled from RN notes): Yes Resp Symptoms (Recalled from RN notes): No Skin Symptoms (Recalled from RN notes): No MS Symptoms (Recalled from RN notes): No Functional Status (Recalled from RN notes): wnl History of Present Illness Provider Complaint: Patient reports his left eye is red, swollen and has been runny for 2 days now. Related Data Home Medications Medication Instructions Recorded Confirmed aspirin 81 mg tablet,delayed 81 mg PO DAILY Heart disease 01/11/19 09/21/21 release atorvastatin 40 mg tablet 40 mg PO HS Cholesterol 01/11/19 09/21/21 metoprolol tartrate 25 mg tablet 37.5 mg PO BID High blood pressure 01/07/20 09/21/21 losartan 25 mg tablet See Rx Instructions .Route 08/17/21 09/21/21 .COMPLEX High blood pressure peg 3350-electrolytes 236 240 ml PO Q10M bowel 08/17/21 09/21/21 gram-22.74 gram-6.74 gram-5.86 gram solution Previous Rx's Medication Instructions Recorded nitroglycerin 0.4 mg sublingual 0.4 mg sublingual Q5M PRN chest 02/26/19 tablet pain #25 tabs ciprofloxacin HCl 0.3 % eye drops See Rx Instructions ophthalmic 12/17/22 (eye) .COMPLEX #5 mL Allergies Allergy/AdvReac Type Severity Reaction Status Date / Time clopidogrel [From Plavix] AdvReac Verified 09/21/21 09:07 Worker's Comp Is this a Worker's Comp case?: No [facility] Disclaimer: The information contained in this section may have been updated after the patient was seen, as this information can be updated by other users. Social History Smoking Status: Current every day smoker tobacco type: cigarettes packs per day: 1 alcohol intake: former substance use type: denies use current occupational status: employed Travel in the last 8 weeks: None household members: significant other housing: house caffeine: Yes ROS Obtained: Yes All systems reviewed & no additional complaints except as documented Constitutional Constitutional: Reports chills and Reports fever(s) Eyes Eyes: Reports eye discharge ENT Ears, Nose, Mouth, and Throat: Reports as per HPI Cardiovascular Cardiovascular: Denies chest pain Respiratory Respiratory: Denies chest congestion and Reports cough Gastrointestinal
[2022-12-17 10:34] VITALS: BP 133/77; PULSE 60; RESP 16; TEMP 36.7; O2SAT 97
== END 2022-12-17 10:35 | disposition home or self-care (01) ==
PROVIDERS: Emergency Provider Nurse Practitioner Family; PCP Internal Medicine Adolescent Medicine
DX: H10.32 Unspecified acute conjunctivitis, left eye (principal); F17.210 Nicotine dependence, cigarettes, uncomplicated
CPT/HCPCS: 99204; 99212; G0463

== ENCOUNTER → 2022-12-30 14:05 | Outpatient (CLI) | payer OTHER, SELFPAY ==
--- NOTE | 2022-12-30 14:11 | CT_ITS ---
FINAL REPORT TECHNIQUE: Axial images were obtained from the lung apex to the mid abdomen by computed tomography. This study was performed with techniques to keep radiation doses as low as reasonably achievable (ALARA). Individualized dose reduction techniques using automated exposure control or adjustment of mA and/or kV according to the patient's size were employed. CLINICAL HISTORY: NICOTINE DEPENDANCE, smoker 1.5 pdd x 30 years hx-CAD- bypass FINDINGS: CHEST CT LOW DOSE CTDI vol (mGy): 2.90 DLP (mGy-cm): 99.25 The patient is status post median sternotomy. There is severe coronary artery calcification. There is no axillary adenopathy. There is no hilar or mediastinal adenopathy. The heart is normal in size. There is no pericardial or pleural effusion. Lung window images demonstrate no suspicious infiltrate or nodule. There is a calcified granuloma in the left lung. There is mild atelectasis or scarring. Limited images of the upper abdomen are unremarkable. IMPRESSION: Lung RADS category 1. Recommend 12 month follow-up low-dose chest CT. Reviewed, Interpreted and Dictated by Darrel Navas III, MD Transcribed by Milly Jennings Authenticated and [facility]
== END ==
PROVIDERS: PCP Internal Medicine Adolescent Medicine; Visit Provider Internal Medicine Adolescent Medicine
DX: Z87.891 Personal history of nicotine dependence (principal); Z12.2 Encounter for screening for malignant neoplasm of respiratory organs
CPT/HCPCS: 71271

== ENCOUNTER → 2023-03-16 11:01 | Outpatient (CLI) | payer OTHER, SELFPAY ==
--- NOTE | 2023-03-16 11:01 | NM_ITS ---
APPROVED REPORT Exam: Nuclear Stress Test Indication: soa Patient Location: Outpatient Stress Tech: Mariama Pickard MS Tech:Luda Meyers FREDDY RT(R)(N) Ht: 5 ft 10 in Wt: 260 lbs HR: 75 bpm BP: 116/81 mmHg BSA: 2.33 m2 Rhythm: NSR TID: 0.95 BMI: 37.3 History: soa Procedure: Patient exercised on Emmanuel protocol 6:01 minutes and sec, resting heart rate 75 bpm, resting blood pressure 116/81 mmHg, with exercise maximum heart rate achived was 119 bpm which is 75 % of the maximum predicted heart rate and blood pressure was 184/80 mmHg. Test was stopped due to fatigue. Patient denied any complaint of chest pain. Patient has Average exercise capacity, achieved 7.0 METs of workload on treadmill, the blood pressure response to exercise was Normal. Cardiac Stress and Resting SPECT Images: Cardiac Stress and Resting SPECT images were obtained using technetium 99m Myoview 32.3 mCi stress and 10.67 mCi at rest. Resting and stress imaging in supine and prone positions demonstrate a large sized, severe, fixed perfusion defect in the inferior and inferolateral LV burger. Gated imaging demonstrates mild to moderate reduction in LV systolic function. There is akinesis of the inferior and lateral LV bruger. LVEF is calculated at 40%. Conclusion: Suboptimal stress test in the setting of inability to achieve target HR. Large sized, severe, fixed perfusion defect in the inferior and inferolateral LV burger. No evidence of reversible ischemia. Gated imaging demonstrates mild to moderate reduction in LV systolic function. There is akinesis of the inferior and lateral LV burger. LVEF is calculated at 40%. As this was a suboptimal stress test (inability to achieve target HR), this test is overall considered nondiagnostic to rule out ischemia. Further evaluation for ischemia is recommended (e.g. pharmacologic stress test), if clinically indicated. Electronically signed by : Lucía Pierce MD 03/22/2023 13:25:45
--- NOTE | 2023-03-16 13:03 | CA_ITS ---
APPROVED REPORT EXAM: Comprehensive 2D, Doppler, and color-flow Echocardiogram Invas Tech: Myrtle Mora RVT Ht: 5 ft 10 in Wt: 262lbs BSA: 2.34 BP: 142/82 mmHg Indications: SOA,CAD,A-FIB,EDEMA,HTN,HLD,SMOKER,CABG 2D Dimensions LVOT 2.21 cm (M/F) 1.5-2.5 LA Volume 56.00 mL LA Volume Index 23.93 mL/m2 (M/F) 16-34 M-Mode Dimensions RVDd 2.58 cm (0.9-2.6) LA Diam 3.54 cm (1.9-4.0) LVDd 4.44 cm (3.5-5.7) Ao Diam 3.79 cm (2.0-3.7) LVDs 3.38 cm (3.5-5.7) IVSd 1.27 cm (0.6-1.1) PWd 0.76 cm (0.6-1.1) EF (Teich) 47.80% FS 23.90% EDV (Teich) 89.60 mL TAPSE 1.66 (<1.7) ESV (Teich) 46.80 mL LV Diastology E Decel Time 210.00 (160-240 msec) E/A Ratio 0.6 MED E' 5.50 (< 7 cm/sec) E'/MED E' Ratio 9.02 (>14) LAT E' 11.10 (<10 cm/sec) E/LAT E' Ratio 4.47 (>14) Aortic Valve LVOT Max 108.00 (70-110 cm/s) LVOT VTI 22.35 cm AoV Peak Alejandro. 145.00 (50-130 cm/s) AO Peak GR. 8.40 mmHg AO Mean GR. 3.40 (<5 mmHg) AO VTI 23.92 (18-25 cm) RONEN (VTI) 3.58 (2.5-4.5 cm2) Mitral Valve MV E Max Alejandro. 50.00 (40-130 cm/s) MV A Velocity 88.00 (40-130 cm/s) E/A Ratio 0.57 MV Decel. Time 210.00 (160-240 ms) MV PHT 62.00 ms Pulmonary Valve PV Peak Velocity 76.00 (50-150 cm/s) Tricuspid Valve TR P. Velocity 202.00 cm/s RAP Estimate 10.00 mmHg RVSP 26.40 mmHg Left Ventricle The left ventricle is normal size. Left ventricular systolic function is mildly decreased. There is increased LV wall thickness. There is moderate to severe hypokinesis of the basal to mid inferior, inferolateral, and inferoseptal LV burger. Transmitral Doppler flow pattern suggests impaired LV relaxation. LVEF is 40-45%. Right Ventricle Right ventricle is mildly dilated. Right ventricle is mildly hypokinetic. Atria The left atrium size is normal. The right atrium size is normal. There is no Doppler evidence of interatrial shunt. Aortic Valve The aortic valve leaflets are mildly thickened. There is no aortic valvular stenosis. Trace aortic regurgitation. Mitral Valve The mitral valve leaflets are mildly thickened. No evidence of mitral valve stenosis. Trace mitral regurgitation. Tricuspid Valve The tricuspid valve leaflets are thin and pliable. Trace tricuspid regurgitation. RVSP is 15-20 mmHg. Pulmonic Valve The pulmonary valve is normal in structure. Trace pulmonic regurgitation. Great Vessels The aortic root is normal in size. The ascending aorta is normal in size. IVC is normal in size and collapses >50% with inspiration. Pericardium There is no pericardial effusion. Conclusion Mildly reduced LV systolic function. LVEF is 40-45%. Moderate to severe hypokinesis of the basal to mid inferior, inferolateral, and inferoseptal LV burger. Mildly dilated RV with mild reduction in RV systolic function. No significant valvular stenosis or regurgitation. Compared to prior study from 2019, the LVEF is now reduced. Electronically signed by : Lucía Pierce MD 03/18/2023 22:29:28
--- NOTE | 2023-03-16 13:42 | CA_ITS ---
APPROVED REPORT Exam: Exercise Treadmill Technologist: Mariama Bella, Ht: 5 ft 10 in Wt: 262 lbs BSA: 2.34 m2 HR: 67 bpm BP: 126/72 mmHg Rhythm: NSR Medical History Medications: Aspirin,,,,, Losartan,,,,, Metoprolol Tartrate,,,,, Atorvastatin,,,,, Nitroglycerin,,,,, Sitagliptin,,,,, Ciprofloxacin HCI,,,,, Phosphate,,,,, Stress Test Details Test: Emmanuel HR Resting HR: 75 bpm Max Heart Rate (APMHR): 159 bpm Max HR Achieved: 119 bpm Target HR (85% APMHR): 135 bpm % of APMHR: 75 Recovery HR: 84 bpm HR response to stress: Blunted HR response to stress BP Resting BP: 116.0/81.0 mmHg Max BP: 184.0/80.0 mmHg Recovery BP: 135.0/73.0 mmHg BP response to stress: Normal blood pressure response to stress. ECG Resting ECG: NSR, cannot R/O old inferolateral MS Stress ECG: New T wave changes in inferior leads Arrhythmia: Occasional PVCs Recovery ECG: Return to baseline within 3 minutes of recovery. Occasional PVCs. Clinical Exercise duration: 06:01 min Highest Stage Achieved: II Exercise capacity: 7.0 METs Overall Exercise Capacity for Age: Average Stress ECG Conclusion This is a suboptimal study in the setting of inability to achieve target HR. The patient was able to walk for a total of 6:00 on Emmanuel Protcol. He achieved a total of 7 METS. He has blunted HR, but normal BP, response to exercise. He has average exercise capacity compared to age and sex matched peers. Max HR: 119 % of PM: 75% Max BP: 184/80 METs: 7.0 Test stopped due to: SOA, Leg fatigue Symptoms: No CP. Arrhythmias/Ectopy: Rate PVC. ST-T Changes: T wave inversions in lead III & aVF. Conclusion: Equivocal EKG changes for ischemia. Myoview images reported separately. Test Summary REST . . . . . . . Sitting REST . . . . . . . Standing REST 04:23 0.0 0.0 75 . 116/ 81 . . Stage 1 01:00 10.0 1.7 88 . . . . Stage 1 02:00 10.0 1.7 95 . . . . Stage 1 03:00 10.0 1.7 98 . 184/ 80 . . Stage 2 01:00 12.0 2.5 108 . . . . Stage 2 02:00 12.0 2.5 117 . . . . Stage 2 03:00 12.0 2.5 118 . . . . Stage 3 00:01 14.0 3.4 118 . . . Stop exercise at 06:01 RECOVERY 01:00 0.0 0.0 105 . . . . RECOVERY 02:00 0.0 0.0 95 . . . . RECOVERY 03:00 0.0 0.0 93 . 168/ 82 . . RECOVERY 04:00 0.0 0.0 86 . 168/ 82 . . RECOVERY 05:00 0.0 0.0 84 . 153/ 74 . . RECOVERY 05:35 0.0 0.0 85 . 135/ 73 . . Electronically signed by : Lucía Pierce MD 03/22/2023 13:21:33
== END ==
LOC: RAD 11:01
PROVIDERS: PCP Internal Medicine Adolescent Medicine; Visit Provider Nurse Practitioner Family
DX: I25.10 Atherosclerotic heart disease of native coronary artery without angina pectoris (principal); R06.02 Shortness of breath; I10 Essential (primary) hypertension; Z72.0 Tobacco use
CPT/HCPCS: 78452; 93017; 93306; A9502

== ENCOUNTER → 2023-03-27 07:34 | Outpatient (CLI) | payer OTHER, SELFPAY ==
[2023-03-27 07:54] LABS: Basophils # 0.1 K/mm3 (0-0.2); Basophils % 0.8 % (0.1-2.0); Eosinophils # 0.3 K/mm3 (0.0-0.4); Eosinophils % 2.8 % (0.1-12.0); Hematocrit 52.6 % (42.0-52.0); Hemoglobin 17.9 g/dL (14.1-18.0); Lymphocytes # 2.7 K/mm3 (0.7-4.5); Lymphocytes % 24.2 % (10-50); Mean Corpuscular Hemoglobin 32.9 pg (27.0-31.2); Mean Corpuscular Volume 96.7 fl (80-94); Mean Platelet Volume 9.4 fl (7.4-10.4); Monocytes # 0.7 K/mm3 (0.1-1.0); Monocytes % 6.4 % (1.7-9.3); Neutrophils # 7.2 K/mm3 (1.8-7.8); Neutrophils % 65.8 % (37.0-80.0); Platelet Count 148 K/mm3 (142-424); Red Blood Count 5.44 M/mm3 (4.60-6.20); Red Cell Distribution Width 12.9 % (11.5-17.5)
[2023-03-27 08:45] LABS: Alanine Aminotransferase 34 U/L (12-78); Albumin Level 4.4 g/dl (3.5-5.0); Albumin/Globulin Ratio 1.4 (1.1-1.8); Alkaline Phosphatase 81 U/L (38-126); Anion Gap 15.9 mEq/L (5-15); Aspartate Amino Transferase 36 U/L (17-59); Bilirubin,Direct 0.1 mg/dl (0.0-0.4); Bilirubin,Indirect 0.4 mg/dL (0.0-0.9); Bilirubin,Total 0.5 mg/dl (0.2-1.3); Bilirubin,Unconjugated 0.4 mg/dL (0.0-1.1); Blood Urea Nitrogen 16 mg/dl (9-20); Calcium 9.4 mg/dl (8.4-10.2); Carbon Dioxide 26 mmol/L (22.0-30.0); Chloride 103 mmol/L (98-107); Chol/HDL Ratio 4.3 (1-3.5); Cholesterol 138 mg/dl (140-200); Estimated Glomerular Filt Rate 98 ml/min (>60); GFR (African American) 119 ML/MIN (>60); Globulin 3.2 g/dL (1.3-3.2); Glucose 104 mg/dl (74-100); HDL Cholesterol 32 mg/dl (40-60); Potassium 4.9 mmoL/L (3.5-5.1); Sodium 140 mmol/L (136-145); Total Protein,Serum 7.6 g/dl (6.3-8.2); Triglycerides 158 mg/dl (30-150); VLDL Cholesterol 32 mg/dL (0-40)
[2023-03-27 08:53] LABS: NT Pro Brain Natriuretic Pep. 99.1 pg/mL (0-125)
[2023-03-27 08:56] LABS: Direct LDL Cholesterol 77.82 mg/dL (100-129)
[2023-03-27 09:00] LABS: Free T4 (Free Thyroxine) 1.09 ng/dl (0.78-2.19)
[2023-03-27 09:14] LABS: Thyroid Stimulating Hormone 2.39 uIU/mL (0.465-4.68)
[2023-03-27 12:57] LABS: Hemoglobin A1C 5.7 % (4.0-6.0)
== END ==
PROVIDERS: Nurse Practitioner Family; PCP Internal Medicine Adolescent Medicine; Visit Provider Obstetrics & Gynecology
DX: I25.10 Atherosclerotic heart disease of native coronary artery without angina pectoris (principal); E78.5 Hyperlipidemia, unspecified; E11.9 Type 2 diabetes mellitus without complications; Z79.84 Long term (current) use of oral hypoglycemic drugs; R06.09 Other forms of dyspnea
CPT/HCPCS: 36415; 80053; 80061; 80076; 83036; 83880; 84439; 84443; 85025

== ENCOUNTER → 2023-05-09 15:29 | Outpatient (CLI) | payer OTHER, SELFPAY ==
[2023-05-09 16:14] LABS: Blood Urea Nitrogen 20 mg/dl (9-20); Estimated Glomerular Filt Rate 76 ml/min (>60); GFR (African American) 92 ML/MIN (>60); Glucose 80 mg/dl (74-100); Potassium 4.5 mmoL/L (3.5-5.1)
[2023-05-09 16:16] LABS: Anion Gap 11.5 mEq/L (5-15); Calcium 9.1 mg/dl (8.4-10.2); Carbon Dioxide 25 mmol/L (22.0-30.0); Chloride 104 mmol/L (98-107); Sodium 136 mmol/L (136-145)
== END ==
PROVIDERS: PCP Internal Medicine Adolescent Medicine; Visit Provider Physician Assistant
DX: E11.9 Type 2 diabetes mellitus without complications (principal); E78.5 Hyperlipidemia, unspecified; I11.9 Hypertensive heart disease without heart failure; I25.10 Atherosclerotic heart disease of native coronary artery without angina pectoris; I48.91 Unspecified atrial fibrillation; I97.89 Other postprocedural complications and disorders of the circulatory system, not elsewhere classified; K21.9 Gastro-esophageal reflux disease without esophagitis; R06.02 Shortness of breath; R60.9 Edema, unspecified; Z95.1 Presence of aortocoronary bypass graft; Z72.0 Tobacco use
CPT/HCPCS: 36415; 80048; 83735

== ENCOUNTER → 2023-05-19 09:04 | Outpatient (CLI) | payer OTHER, SELFPAY ==
--- NOTE | 2023-05-19 | CA_ITS ---
APPROVED REPORT EXAM: Comprehensive 2D, Doppler, and color-flow Echocardiogram Hydrographic Surveyor: Jyoti Rodriguez CRT Ht: 5 ft 10 in Wt: 254lbs BSA: 2.31 BP: 122/71 mmHg Indications: Cardiomyopathy Generic I42.8 40-45% EF echo 03/16/23 2D Dimensions Left Atrium 3.09 cm EF AP4 49.50 % LVOT 2.00 cm (M/F) 1.5-2.5 GL Strain -13.5 % M-Mode Dimensions RVDd 2.81 cm (0.9-2.6) LVDd 5.11 cm (3.5-5.7) Ao Diam 4.63 cm (2.0-3.7) LVDs 4.03 cm (3.5-5.7) IVSd 1.97 cm (0.6-1.1) PWd 0.67 cm (0.6-1.1) EF (Teich) 42.70% FS 21.10% EDV (Teich) 124.40 mL ESV (Teich) 71.30 mL Other Information Study Quality: Fair Conclusion This is a limited TTE to evaluate for LVEF. Limited windows were obtained. The left ventricle is normal in size. There is normal LV wall thickness. There is low-normal LV systolic function. No regional wall motion abnormalities are noted. LVEF is 50-55%. The right ventricle is mildly dilated with mild reduction in RV function. Compared to prior study from 03/16/2023, the LVEF is now improved. Electronically signed by : Lucía Pierce MD 05/20/2023 23:50:30
== END ==
LOC: RT 09:04
PROVIDERS: PCP Internal Medicine Adolescent Medicine; Visit Provider Physician Assistant
DX: R06.02 Shortness of breath (principal); I25.10 Atherosclerotic heart disease of native coronary artery without angina pectoris; Z72.0 Tobacco use
CPT/HCPCS: 93308

== ENCOUNTER 2023-08-11 09:33 | Day surgery (SDC) | payer OTHER, SELFPAY ==
[2023-08-09 11:01] VITALS: BMI 39.6
[2023-08-11] MEDS: LACTATED RINGERS 1000ML 1,000 ML 25 ML IV (09:50)
--- NOTE | 2023-08-11 09:53 | P.PCN_ITS ---
Procedure: Date: 08/11/23 Patient Date of :: 1960 Procedure Performed:: Total colonoscopy with numerous polypectomy Indications:: Patient is a 63-year-old male with history of coronary artery disease, car diomyopathy, previous coronary artery bypass grafting, hypertension, hyperlipidemia, GERD, diabetes scheduled for surveillance colonoscopy due to history of polyps. I performed initial colonoscopy on him on 08/20/2021 for positive Cologuard. At that time he had 26 polyps removed 2 of which were sessile serrated adenomas and 2 of which were tubular adenomas. Patient states that over the past 6 months he has had some symptoms consistent with mild focal hemorrhoid prolapse with painless bleeding. Performing Provider:: Darrel Wyatt MD Referring Provider:: Wero Sharma MD Sedation:: MAC sedation Procedure:: Patient history was obtained and appropriate physical examination was performed. Patient's medications and allergies were reviewed. Informed consent was obtained after explaining the benefits, alternatives, and risks of the procedure including, but not limited to, bleeding, perforation, missed lesions, and adverse reaction to anesthesia medications. Patient was transported to endoscopy procedure room. Patient was connected to monitoring devices. Throughout the procedure the patient's blood pressure, pulse, and oxygen saturations were monitored continuously. Patient identif ication and planned procedure were verified by the staff. Patient was positioned in lateral decubitus position. Digital anorectal exam was performed. Variable stiffness Olympus colonoscope was inserted and advanced under direct visualization to the cecum. Adequacy of the colonic preparation was noted. The colonoscope was advanced a short distance into the terminal ileum. The colonoscope was then slowly withdrawn while carefully examining the color, texture, anatomy, and integrity of the mucosoa circumferentially. Within the rectum retroflexion was performed. Colonoscope was then withdrawn. . Colonoscope was advanced to the cecum. There was particulate opaque stool. This was mostly cleared with high-volume trans colonoscopic irrigation and suctioning. Colonoscope was withdrawn. At the [place] flexure there is a small polyp removed with cold snare. In the distal transverse colon there were 5 diminutive polyps within the region. These were removed mostly with biopsy forceps with 1 or 2 polyps removed with cold snare. In the proximal sigmoid colon there was a polyp removed with cold snare. In the mid sigmoid colon there was a polyp removed with cold snare. The rectum there were several hyperplastic appearing polyps. Larger of these were removed with biopsy forceps. . Findings:: Polyps as noted above Minimal sigmoid diverticulosis Recommendations:: Repeat colonoscopy pending pathology. Given prior history and number of polyps likely within 2 years. Complications:: None immediately apparent Estimated blood obtained (mL): 2 Colonoscopy Component Colonoscopy Component Was a colonoscopy performed during today's procedure?: Yes Recommended follow up colonoscopy of at least 10 years?: No If no, follow up colonoscopy recommended in ___ years?: 2 Reason for not recommending >/= 10 yr follow-up interval?: See above
[2023-08-11 09:54] VITALS: BP 120/74; PULSE 79; RESP 18; TEMP 36.7; O2SAT 96
[2023-08-11 10:07] LABS: POC Glucose,Bedside 100 (70-110)
[2023-08-11 10:11] VITALS: O2SAT 98
--- NOTE | 2023-08-11 10:20 | EXP.ANES.CKL ---
[facility] Disclaimer: The information contained in this section may have been updated after the patient was seen, as this information can be updated by other users. Medical History 3-vessel coronary artery disease CAD (coronary artery disease) Cardiomyopathy Diabetes mellitus Edema GERD (gastroesophageal reflux disease) HFrEF (heart failure with reduced ejection fraction) HLD (hyperlipidemia) HTN (hypertension) Postoperative atrial fibrillation SOB (shortness of breath) on exertion Surgical History Status post coronary artery bypass graft Family History (Updated 08/11/23 @ 09:52 by Chris Tan RN) Other Family history of colitis Social History Smoking Status: Current every day smoker tobacco type: cigarettes packs per day: 1 alcohol intake: former substance use type: denies use current occupational status: employed Travel in the last 8 weeks: None household members: significant other housing: house caffeine: Yes [facility] Anesthesia Checklist Patient Identification Patient Identification: Arm Band Structural Data Admitted From: Home Planned Operative Procedure/s: Colonoscopy Consent for Planned Operative Procedure(s) Verified: Yes Verified Documents: Surgical Consent and History and Physical NPO Status Verified Time NPO: 00:00 Additional verifications Anesthesia Reactions: No Airway Assessment Mallampati Score:: Class II C-Spine Mobility Assessed: Yes TMJ Mobility Assessed: Yes Dentition: Good Dentition Neurological Assessment Level of Consciousness: Awake and Alert Anesthesia Plan Anesthesia Risk discussed: Yes Anesthesia Plan: Verified ASA Class: III Anesthesia Type: MAC
[2023-08-11 10:58] VITALS: BP 87/50; PULSE 63; RESP 14; TEMP 36.8; O2SAT 90
[2023-08-11 11:08] VITALS: BP 105/56; PULSE 71; RESP 17; O2SAT 95
[2023-08-11 11:18] VITALS: BP 110/74; PULSE 69; RESP 18; O2SAT 98
[2023-08-11 11:28] VITALS: BP 121/82; PULSE 70; RESP 17; O2SAT 98
== END 2023-08-11 11:30 | disposition home or self-care (01) ==
PROVIDERS: PCP Internal Medicine Adolescent Medicine; Visit Provider Surgery
PROC: 0DJD8ZZ Inspection of Lower Intestinal Tract, Via Natural or Artificial Opening Endoscopic (ICD-10-PCS; CPT 45385; principal; 2023-08-11 10:30)
DX: Z12.11 Encounter for screening for malignant neoplasm of colon (principal); Z86.010 Personal history of colon polyps; E11.9 Type 2 diabetes mellitus without complications; K63.5 Polyp of colon; D12.3 Benign neoplasm of transverse colon; K57.92 Diverticulitis of intestine, part unspecified, without perforation or abscess without bleeding
CPT/HCPCS: 45385; 45380; 82962; J2704

== ENCOUNTER 2023-10-23 10:21 | Outpatient (CLI) | payer OTHER, SELFPAY ==
[2023-10-23 10:39] LABS: Basophils # 0.2 K/mm3 (0-0.2); Basophils % 1.5 % (0.1-2.0); Eosinophils # 0.3 K/mm3 (0.0-0.4); Eosinophils % 2.8 % (0.1-12.0); Hematocrit 51.1 % (42.0-52.0); Hemoglobin 16.9 g/dL (14.1-18.0); Lymphocytes # 2.6 K/mm3 (0.7-4.5); Lymphocytes % 27.1 % (10-50); Mean Corpuscular HGB Conc 33.1 g/dL (31.8-35.4); Mean Corpuscular Hemoglobin 32.2 pg (27.0-31.2); Mean Corpuscular Volume 97.1 fl (80-94); Mean Platelet Volume 8.9 fl (7.4-10.4); Monocytes # 0.6 K/mm3 (0.1-1.0); Monocytes % 6.3 % (1.7-9.3); Neutrophils % 62.4 % (37.0-80.0); Platelet Count 178 K/mm3 (142-424); Red Blood Count 5.26 M/mm3 (4.60-6.20); Red Cell Distribution Width 13.4 % (11.5-17.5); White Blood Count 9.7 K/mm3 (4.8-10.8)
[2023-10-23 11:30] LABS: Chloride 104 mmol/L (98-107); Potassium 4.7 mmoL/L (3.5-5.1); Sodium 137 mmol/L (136-145)
[2023-10-23 11:32] LABS: Bilirubin,Unconjugated 0.4 mg/dL (0.0-1.1); Blood Urea Nitrogen 19 mg/dl (9-20); Estimated Glomerular Filt Rate 86 ml/min (>60); GFR (African American) 103 ML/MIN (>60)
[2023-10-23 11:33] LABS: Alanine Aminotransferase 35 U/L (12-78); Albumin Level 4.4 g/dl (3.5-5.0); Alkaline Phosphatase 82 U/L (38-126); Anion Gap 10.7 mEq/L (5-15); Aspartate Amino Transferase 34 U/L (17-59); Bilirubin,Direct 0.2 mg/dl (0.0-0.4); Bilirubin,Indirect 0.3 mg/dL (0.0-0.9); Bilirubin,Total 0.5 mg/dl (0.2-1.3); Carbon Dioxide 27 mmol/L (22.0-30.0); Cholesterol 160 mg/dl (140-200); Glucose 99 mg/dl (74-100); Magnesium 1.8 mg/dl (1.6-2.3); Total Protein,Serum 7.5 g/dl (6.3-8.2); Triglycerides 122 mg/dl (30-150); VLDL Cholesterol 24 mg/dL (0-40)
[2023-10-23 11:34] LABS: Chol/HDL Ratio 3.6 (1-3.5); HDL Cholesterol 45 mg/dl (40-60)
[2023-10-23 11:44] LABS: Direct LDL Cholesterol 88.88 mg/dL (100-129)
[2023-10-23 12:03] LABS: Thyroid Stimulating Hormone 1.68 uIU/mL (0.465-4.68)
[2023-10-23 12:59] LABS: Free T4 (Free Thyroxine) 0.95 ng/dl (0.78-2.19)
== END 2023-10-23 23:59 | disposition home or self-care (01) ==
LOC: LAB 10:22
PROVIDERS: PCP Internal Medicine Adolescent Medicine; Visit Provider Physician Assistant
DX: I11.0 Hypertensive heart disease with heart failure (principal); I25.118 Atherosclerotic heart disease of native coronary artery with other forms of angina pectoris; I50.20 Unspecified systolic (congestive) heart failure; Z95.1 Presence of aortocoronary bypass graft; E78.49 Other hyperlipidemia; I48.91 Unspecified atrial fibrillation; I97.89 Other postprocedural complications and disorders of the circulatory system, not elsewhere classified; K21.9 Gastro-esophageal reflux disease without esophagitis; E11.9 Type 2 diabetes mellitus without complications; Z79.84 Long term (current) use of oral hypoglycemic drugs; F17.210 Nicotine dependence, cigarettes, uncomplicated
CPT/HCPCS: 36415; 80048; 80061; 80076; 83735; 84439; 84443; 85025

== ENCOUNTER 2023-12-03 11:04 | Emergency (ER) | payer OTHER, SELFPAY ==
[2023-12-03 11:04] VITALS: BP 123/69; PULSE 74; RESP 16; TEMP 36.8; O2SAT 95; BMI 37.8
--- NOTE | 2023-12-03 11:32 | EXP.UTC ---
Discharge Plan Disposition Patient Disposition: Home, Self-Care Condition: Good Prescriptions Prescriptions: New prednisone 10 mg tablet 10 mg PO DIRECTED 9 Days Qty: 21 0RF Rx Instructions: Take 4 tablets daily for 3 days, then take 2 tablets daily for 3 days, then take 1 tablet daily for 3 days, then stop. triamcinolone acetonide 0.1 % cream 1 applic topical BID PRN (Reason: itching) Qty: 30 0RF No Action nitroglycerin 0.4 mg tablet, sublingual 0.4 mg SUBLINGUAL Q5M PRN (Reason: chest pain) Qty: 25 0RF Rx Instructions: until response; do not exceed 3 doses per episode metoprolol tartrate 25 mg tablet 25 mg PO BID Entresto 49-51 mg tablet 1 tab PO BID Qty: 180 3RF spironolactone 25 mg tablet See Rx Instructions .ROUTE .COMPLEX Qty: 90 4RF Dose Instruction: TAKE ONE TABLET BY MOUTH EVERY DAY Rx Instructions: TAKE ONE TABLET BY MOUTH EVERY DAY furosemide [Lasix] 40 mg tablet 40 mg PO DAILY Qty: 90 3RF Jardiance 10 mg tablet 10 mg PO DAILY Qty: 30 11RF atorvastatin 40 MG tablet 40 mg PO HS aspirin 81 MG tablet,delayed release (DR/EC) 81 mg PO DAILY Referrals Follow up/Referrals: Wero Sharma MD [Primary Care Provider] - See instructions Activity Restrictions/Add. Instructions Additional Instructions/Restrictions: Try to identify and avoid contact with the offending substance. Don't start the oral steroids until tomorrow. Don't put the topical steroids (triamcinolone) on your face or your groin. Follow up with your regular doctor. GO TO THE ER FOR ANY WORSENING SYMPTOMS OR CONCERNS Clinical Impressions Clinical Impression: Contact dermatitis Instructions Patient Instructions: Contact Dermatitis, DI for Contact Dermatitis, Ceftriaxone Injection, Methylprednisolone Injection Discharge ED [place]: [place] [facility] [place] General Stated complaint: rash poison sherie Time Seen by Provider: 12/03/23 11:31 Related Data Home Medications Medication Instructions Recorded Confirmed aspirin 81 mg tablet,delayed 81 mg PO DAILY Heart disease 01/11/19 10/23/23 release atorvastatin 40 mg tablet 40 mg PO HS Cholesterol 01/11/19 10/23/23 metoprolol tartrate 25 mg tablet 25 mg PO BID High blood pressure 04/06/23 10/23/23 Previous Rx's Medication Instructions Recorded nitroglycerin 0.4 mg sublingual 0.4 mg sublingual Q5M PRN chest 02/26/19 tablet pain #25 tabs sacubitril 49 mg-valsartan 51 mg 1 tab PO BID #180 tabs 06/20/23 tablet (Entresto) spironolactone 25 mg tablet See Rx Instructions .Route 06/28/23 .COMPLEX #90 tabs furosemide 40 mg tablet (Lasix) 40 mg PO DAILY #90 tabs 09/08/23 empagliflozin 10 mg tablet 10 mg PO DAILY #30 tabs 10/11/23 (Jardiance) prednisone 10 mg tablet 10 mg PO DIRECTED 9 days #21 12/03/23 tabs triamcinolone acetonide 0.1 % 1 applic topical BID PRN itching 12/03/23 topical cream #30 grams Allergies Allergy/AdvReac Type Severity Reaction Status Date / Time clopidogrel [From Plavix] AdvReac Verified 10/23/23 09:28 [facility] Disclaimer: The information contained in this section may have been updated after the patient was seen, as this information can be updated by other users. Medical History Cardiomyopathy HFrEF (heart failure with reduced ejection fraction) Edema SOB (shortness of breath) on exertion Diabetes mellitus GERD (gastroesophageal reflux disease) Postoperative atrial fibrillation HLD (hyperlipidemia) HTN (hypertension) CAD (coronary artery disease) 3-vessel coronary artery disease Surgical History Status post coronary artery bypass graft Family History Other Family history of colitis Social History Smoking Status: Current every day smoker tobacco type: cigarettes packs per day: 1 alcohol intake: former substance use type: denies use current occupational status: employed Travel in the last 8 weeks: None household members: significant other housing: house caffeine: Yes ROS Obtained: Yes All systems reviewed & no additional complaints except as documented Constitutional Constitutional: Denies chills and Denies fever(s) Eyes Eyes: Denies eye discharge ENT Ears, Nose, Mouth, and Throat: Denies dizziness, Denies otalgia and Denies sore throat Cardiovascular Cardiovascular: Denies chest pain Respiratory Respiratory: Denies shortness of breath, Denies chest congestion, Denies cough, Denies stridor and Denies wheezing Gastrointestinal Gastrointestingal: Denies nausea or vomiting Musculoskeletal Musculoskeletal: Reports system reviewed and no additional complaints, except as documented and Denies arthralgias Integumentary/Breasts Skin/Breast: Reports as per HPI and Reports rash Neurologic Neurologic: Denies dizziness and Denies paresthesias Allergic/Immunologic Allergic/Immunologic: Denies wheezing Physical Exam General General appearance: alert and in no apparent distress Head Head exam: atraumatic, normocephalic and normal inspection Eye Eye exam: Present normal appearance, PERRL and EOMI ENT ENT exam: Present normal exam, normal oropharynx, mucous membranes moist, TM's normal bilaterally and normal external ear exam Neck Neck exam: Present normal inspection, full ROM and trachea midline; Absent meningismus or lymphadenopathy Chest Chest inspection: Present normal inspection and symmetric chest wall rise; Absent tenderness Respiratory Respiratory exam: Present normal lung sounds bilaterally; Absent respiratory distress Cardiovascular Cardiovascular exam: Present regular rate and normal rhythm; Absent JVD Abdominal Exam Abdominal exam: Present soft and normal bowel sounds; Absent distention, tenderness or guarding Extremities Exam Extremities exam: Present normal inspection, full ROM and normal capillary refill; Absent calf tenderness Back Exam Back exam: Present normal inspection; Absent tenderness Neurological Exam Neurological exam: Present alert and oriented X3 Psychiatric Psychiatric exam: Present normal affect and normal mood Skin Skin exam: Present rash Lymphatic Lymphatic Findings: no adenopathy Medical Decision Making Medical Records Medical records reviewed: No I reviewed the patient's medical records. Néstor Inquiry Pt receiving controlled substance: No
[2023-12-03] MEDS: METHYLPREDNISOLONE SOD SUCC 125MG VIAL 125 MG IM (11:51)
[2023-12-03 12:10] VITALS: BP 123/69; PULSE 74; RESP 16; TEMP 36.8; O2SAT 95
== END 2023-12-03 12:10 | disposition home or self-care (01) ==
PROVIDERS: Emergency Provider Nurse Practitioner Family; PCP Internal Medicine Adolescent Medicine
DX: L23.7 Allergic contact dermatitis due to plants, except food (principal); W60.XXXA Contact with nonvenomous plant thorns and spines and sharp leaves, initial encounter
CPT/HCPCS: 96372; 99212; 99214; G0463; J2919

== ENCOUNTER 2024-03-19 13:37 | Outpatient (CLI) | payer OTHER, SELFPAY ==
--- NOTE | 2024-03-19 13:41 | CT_ITS ---
FINAL REPORT TECHNIQUE: Thin section axial images were obtained from the lung apices to the upper abdomen by computed tomography. Reformatted images were obtained and reviewed. This study was performed with techniques to keep radiation doses al low as reasonably achievable (ALARA). Individualized dose reduction techniques using automated exposure control or adjustment of mA and/or kV according to the patient's size were employed. CLINICAL HISTORY: .current smoker 1 ppd x 40 years COMPARISON: 12/30/2022 FINDINGS: CHEST CT LOW DOSE 64-year-old male, current smoker, 61-lhtb-ftsq history. CTDI vol (mGy): 2.9 DLP (mGy-cm): 107.07 There is mild streak artifact from median sternotomy wires. There is no axillary adenopathy. There are a few small mediastinal nodes, which are not enlarged. The heart is normal in size. There is no pericardial or pleural effusion. Lung window images demonstrate no suspicious infiltrate or nodule. Limited images of the upper abdomen are unremarkable. IMPRESSION: Lung-RADS category 1. Recommend 12 month follow up low dose chest CT. Authenticated and ERN
== END 2024-03-19 23:59 | disposition home or self-care (01) ==
LOC: RAD 13:38
PROVIDERS: PCP Internal Medicine Adolescent Medicine; Visit Provider Internal Medicine Adolescent Medicine
DX: F17.210 Nicotine dependence, cigarettes, uncomplicated (principal)
CPT/HCPCS: 71271

== ENCOUNTER 2024-07-25 06:10 | Outpatient (CLI) | payer OTHER, SELFPAY ==
--- NOTE | 2024-07-25 | CA_ITS ---
APPROVED REPORT Exam: Pharmacologic Technologist: Marycruz Albrecht Ht: 5 ft 10 in Wt: 267 lbs BSA: 2.36 m2 HR: 62 bpm BP: 103/65 mmHg Rhythm: Nsr Medical History Medical History: HTN, Hyperlipidemia, Diabetes, Smoking Medications: Aspirin, Atorvastatin, Empagliflozin, Furosemide, Metoprolol Tartrate, Nitroglycerin, Entresto, Spironolactone Allergies: Clopidogrel Cardiac Risk Factors: HTN, Hyperlipidemia, Diabetes, Smoking Stress Test Details Test: Lexiscan HR Resting HR: 62 bpm Max Heart Rate (APMHR): 157.358909 bpm Target HR (85% APMHR): 133.046179 bpm Recovery HR: 84 bpm BP Resting BP: 103.0/65.0 mmHg Max BP: 150.0/77.0 mmHg Recovery BP: 110.0/76.0 mmHg ECG Resting ECG: Nsr Stress ECG Conclusion Pt had soa No cp <1.5mm ST segment changes Non-diagnostic Lexiscan stress Electronically signed by : Lucía Pierce MD 07/25/2024 14:12:44
--- NOTE | 2024-07-25 06:15 | NM_ITS ---
APPROVED REPORT Exam: Nuclear Stress Test Indication: soa..fatigue Patient Location: Outpatient Stress Tech: Marycruz Albrecht [place] Tech:Luda MeyersFREDDY RT(R)(N) Ht: 5 ft 10 in Wt: 260 lbs HR: 64 bpm BP: 103/65 mmHg BSA: 2.33 m2 BMI: 37.3 History: soa..fatigue Procedure: Patient received 0.4 mg of intravenous Lexiscan, resting heart rate 64 bpm, resting blood pressure 103/65 mmHg, with Lexiscan maximum heart rate achieved was 89 bpm which is 85 % of the maximum predicted heart rate and blood pressure was 150/77 mmHg. With Lexiscan, patient denied any complaint of chest pain. Cardiac Stress and Resting SPECT Images: Cardiac Stress and Resting SPECT images were obtained using technetium 99m Myoview 30.0 mCi stress and 10.47 mCi at rest. Technically difficult study. Resting and stress imaging in supine and prone positions demonstrate a large sized, severe, fixed perfusion defect in the inferior and lateral LV burger. There is a region of reversibility towards the lateral LV wall. Gated imaging demonstrates moderate reduction in global LV systolic function. There is akinesis of the inferior and lateral LV burger. LVEF is calculated at 31%. Conclusion: Large sized, severe, fixed perfusion defect in the inferior and lateral LV burger. There is a region of reversibility towards the lateral LV wall. Findings are suggestive of partial reversible ischemia. Gated imaging demonstrates moderate reduction in global LV systolic function. There is akinesis of the inferior and lateral LV burger. LVEF is calculated at 31%. Electronically signed by : Lucía Pierce MD 07/25/2024 14:11:57
--- NOTE | 2024-07-25 07:09 | CA_ITS ---
APPROVED REPORT EXAM: Comprehensive 2D, Doppler, and color-flow Echocardiogram Front Desk Attendant: Jyoti Rodriguez CRT Ht: 5 ft 10 in Wt: 267lbs BSA: 2.36 BP: 113/72 mmHg Indications: Shortness of Breath, Atrial Fibrillation, Diabetes, Peripheral Edema, Hyperlipidemia, Hypertension/HDD, smoker, CABG x 3 2018, EF 40-45% 05/13 AND 03/13 2D Dimensions LA Volume 40.40 mL LA Volume Index 16.70 mL/m2 (M/F) 16- M-Mode Dimensions RVDd 2.51 cm (0.9-2.6) LA Diam 4.13 cm (1.9-4.0) LVDd 6.09 cm (3.5-5.7) LVDs 4.01 cm (3.5-5.7) IVSd 0.97 cm (0.6-1.1) PWd 0.97 cm (0.6-1.1) EF (Teich) 62.20% FS 34.20% EDV (Teich) 186.20 mL TAPSE 2.86 (<1.7) ESV (Teich) 70.40 mL LV Diastology MED A' 9.80 cm/s LAT A' 13.20 cm/s Aortic Valve AO Peak GR. 10.10 mmHg Pulmonary Valve PV Peak Velocity 84.0 (50-150 cm/s) Tricuspid Valve TR P. Velocity 218.00 cm/s RAP Estimate 10.00 mmHg RVSP 28.90 mmHg Left Ventricle The left ventricle is normal size. The left ventricular systolic function is low normal. There is increased LV wall thickness. Mild hypokinesis of the inferior and inferolateral LV burger is present. The left ventricular diastolic function is normal. LVEF is 50%. Right Ventricle The right ventricle is mildly dilated. The right ventricular systolic function is normal. Atria The left atrium size is normal. The right atrium size is normal. There is no Doppler evidence of interatrial shunt. Aortic Valve The aortic valve is mildly thickened. There is no aortic valvular stenosis. No aortic regurgitation is present. Mitral Valve The mitral valve is normal in structure. No evidence of mitral valve stenosis. Trace mitral regurgitation. Tricuspid Valve Tricuspid valve is grossly normal in structure and function. Trace tricuspid regurgitation. There is insufficient TR jet to estimate RVSP. Pulmonic Valve The pulmonary valve is normal in structure. Trace pulmonic regurgitation. Great Vessels The aortic root is normal in size. IVC is normal in size and collapses >50% with inspiration. Pericardium There is no pericardial effusion. Other Information Study Quality: Technically Difficult Conclusion Technically difficult study due to poor acoustic windows. Low-normal LV systolic function (LVEF 50%). There is mild hypokinesis of the inferior and inferolateral LV burger. Mild RV dilation with normal RV function. In the setting of technically difficult study, future TTE evaluations are suggested with administration of ultrasound enhancing agent. Electronically signed by : Lucía Pierce MD 08/01/2024 15:29:33
[2024-07-25] MEDS: SODIUM CHLORIDE 0.9% 10ML SYR (RAD ONLY) 10 ML IV ×2 (09:38)
[2024-07-25] MEDS: REGADENOSON 0.4MG/5ML SYRINGE 0.4 MG IV (09:38)
[2024-07-25] MEDS: ISOTOPE MYOVIEW (PER STUDY) 1 DOSE IV (09:38)
== END 2024-07-25 23:59 | disposition home or self-care (01) ==
LOC: RAD 06:11
PROVIDERS: PCP Internal Medicine Adolescent Medicine; Visit Provider Nurse Practitioner
DX: R06.09 Other forms of dyspnea (principal); R60.0 Localized edema
CPT/HCPCS: 78452; 93017; 93018; 93306; A9502; J2785

== ENCOUNTER 2024-08-09 07:53 | Day surgery (SDC) | payer OTHER, SELFPAY ==
[2024-08-09] VITALS (12 sets, daily range): BP systolic 107–145; BP diastolic 66–83; PULSE 58–72; RESP 18–20; O2SAT 94–98; BMI 37.3
--- NOTE | 2024-08-09 07:05 | IR_ITS ---
APPROVED REPORT Patient Location: Outpatient PROCEDURES Left heart catheterization Left ventriculogram Selective coronary angiogram Selective engage in the saphenous vein graft to the circumflex artery Selective engagement of the left internal mammary artery Drug-eluting stent deployment to the proximal circumflex artery Drug-eluting stent deployment to the ostial left anterior descending artery Attempted angioplasty of a chronically occluded first obtuse marginal artery INDICATION Coronary artery disease, Angina pectoris, Abnormal Myoview, History of coronary bypass surgery, Loss of saphenous vein graft to the circumflex artery, Chronically occluded first obtuse marginal artery Informed consent was obtained prior to the procedure. COMPLICATIONS none Estimated Blood Loss: less than 10ml TECHNIQUE One percent lidocaine used to anesthetize the right groin. The right femoral artery was accessed via the Seldinger technique and a 5 [place] sheath was placed in the right femoral artery. A JL 4, JR4 catheter were used to perform left heart catheterization, left ventriculogram selective coronary angiography as well as selective engagement of the solitary vein graft and the left internal mammary artery. At the end the diagnostic angiogram therapeutic heparin was administered given a therapeutic ACT and the 5 [place] sheath exchanged for a 6 [place] sheath and the JL 4 guide catheter was placed in the left main artery followed by Choice PT extra-support wire placed in the circumflex artery. A 3.5 x 26 mm [place] frontier stent was placed just distal to a large ramus intermedius and extending into the mid circumflex artery and deployed at 20 kelin reducing the severe stenosis to 0%. The wire was then pulled back and placed into the chronically occluded first obtuse marginal artery followed by a 2 mm x 12 mm noncompliant balloon. With the Choice PT extra-support wire and the chronic occlusion in the advancing of the balloon this still would not pass through the chronic occlusion. At this point the attempt at opening the chronically occluded vessel was abandoned and the wire was placed into the LAD. Although the PABLO graft was open there was not adequate backfilling of a large septal panel laminator and a diagonal artery. Given the degree of LV dysfunction it was felt the ostial LAD should be open to supply the septal panel laminator and diagonal artery. A 3.5 x 8 mm [place] frontier stent was deployed in the ostium of the LAD at 20 kelin reducing the stenosis to 0%. AMALIA-3 flow was present in the proximal LAD before and after the procedure. At the end the procedure the apparatus was removed the groin is reprepped closure change sheath was removed and hemostasis was achieved using Angio-Seal device patient was transferred to the postop putting in stable condition ANGIOGRAPHIC RESULTS The left main artery Normal The left anterior descending artery Has an ostial concentric 90% stenosis followed by a mid vessel 70% stenosis. There is competitive flow from the left internal mammary artery which does not appear to adequately backfill the septal panel laminator or diagonal artery The circumflex artery Large and dominant and has a 50% stenosis distal to the large ramus intermedius followed by a 70% stenosis distal to a chronically occluded first obtuse marginal artery. The right coronary artery Nondominant and proximally subtotally occluded with right to right collaterals The SERRATO ventriculogram reveals Dilated ventricle with reduced ejection fraction estimated at 30 to 35% with anterior and apical hypokinesis The left ventricular end-diastolic pressure 10 mmHg PABLO to LAD is widely patent. There was a large intercostal branch which originates in the proximal portion of the PABLO graft Saphenous to circumflex artery ostially occluded IMPRESSION Coronary disease as described above Successful stenting of a proximal dominant circumflex artery severe disease reduced to 0% with 1 drug-eluting stent Attempted percutaneous revascularization of a chronically occluded first obtuse marginal artery which was unsuccessful and the artery remained chronically occluded Successful stenting of the ostial LAD severe disease reduced to 0% with 1 drug-eluting stent Severely reduced ejection fraction with regional wall motion abnormality Normal LVEDP Large intercostal branch originating from the PABLO graft which is of unknown significance at this time. PLAN 1. Effient and aspirin 2. Reevaluate ejection fraction in 90 days to determine if patient is a candidate for AICD 3. At this time I do not believe the intercostal branch is inhibiting or competing with LAD flow however this needs to be monitored and clinicians aware of the situation 4. LDL less than 55 to achieve that high intensity statin 5. Standard therapy for LV dysfunction 6. Obtain formal echocardiogram to determine ejection fraction. If ejection fraction is reduced as the SERRATO ventriculogram suggested patient may be a candidate for a LifeVest 7. Cardiac rehabilitation Electronically signed by : Sanjay Bueno MD 08/09/2024 12:15:19
[2024-08-09 08:26] LABS: Basophils # 0.1 K/mm3 (0-0.2); Basophils % 0.7 % (0.1-2.0); Eosinophils # 0.3 K/mm3 (0.0-0.4); Eosinophils % 2.8 % (0.1-12.0); Hematocrit 49.1 % (42.0-52.0); Hemoglobin 16.9 g/dL (14.1-18.0); Lymphocytes # 2.5 K/mm3 (0.7-4.5); Lymphocytes % 25.1 % (10-50); Mean Corpuscular HGB Conc 34.4 g/dL (31.8-35.4); Mean Corpuscular Hemoglobin 32.3 pg (27.0-31.2); Mean Corpuscular Volume 93.9 fl (80-94); Mean Platelet Volume 11.2 fl (7.4-10.4); Monocytes # 1.1 K/mm3 (0.1-1.0); Monocytes % 11.3 % (1.7-9.3); Neutrophils % 59.7 % (37.0-80.0); Platelet Count 192 K/mm3 (142-424); Red Blood Count 5.23 M/mm3 (4.60-6.20); Red Cell Distribution Width 12.5 % (11.5-17.5)
[2024-08-09 08:36] LABS: Anion Gap 13.7 mEq/L (5-15); Blood Urea Nitrogen 26 mg/dl (9-20); Calcium 9.4 mg/dl (8.4-10.2); Carbon Dioxide 26 mmol/L (22.0-30.0); Chloride 104 mmol/L (98-107); Creatinine Clearance Estimated 126 mL/min (50-200); Estimated Glomerular Filt Rate 85 ml/min (>60); GFR (African American) 103 ML/MIN (>60); Glucose 98 mg/dl (74-100); Potassium 4.7 mmoL/L (3.5-5.1); Sodium 139 mmol/L (136-145)
[2024-08-09] MEDS: diphenhydrAMINE 50MG/ML VIAL 50 MG IV (10:54)
[2024-08-09] MEDS: 0.9 % SODIUM CHLORIDE 500 ML 25 ML IV (10:55)
[2024-08-09] MEDS: LIDOCAINE 1% 10ML MDV 20 ML IJ (10:55)
[2024-08-09] MEDS: HEPARIN 1,000 UNITS/500ML NS (CATH LAB) 3000 UNIT IV (10:55)
[2024-08-09] MEDS: HEPARIN 1,000 UNITS/ML 10ML VIAL (CATH LAB) 10000 UNIT IV (11:25)
[2024-08-09] MEDS: FENTANYL 100MCG/2ML VIAL 50 MCG IV (11:36)
[2024-08-09] MEDS: MIDAZOLAM HCL 1MG/ML 5ML VIAL 1 MG IV (11:36)
[2024-08-09] MEDS: PRASUGREL 10MG TAB 60 MG PO (11:55)
[2024-08-09] MEDS: IOPAMIDOL-370 (76%);100ML BOTTLE 200 ML IV (13:12)
[2024-08-09 13:15] LABS: CATHL Activated Clotting Time 338 SEC (74-125)
== END 2024-08-09 15:32 | disposition home or self-care (01) ==
PROVIDERS: PCP Internal Medicine Adolescent Medicine; Visit Provider Internal Medicine
DX: I25.118 Atherosclerotic heart disease of native coronary artery with other forms of angina pectoris (principal); I25.82 Chronic total occlusion of coronary artery; R94.39 Abnormal result of other cardiovascular function study; F17.210 Nicotine dependence, cigarettes, uncomplicated; Z95.1 Presence of aortocoronary bypass graft; R06.02 Shortness of breath; I50.20 Unspecified systolic (congestive) heart failure; I11.0 Hypertensive heart disease with heart failure; E11.9 Type 2 diabetes mellitus without complications; E78.5 Hyperlipidemia, unspecified; Z95.5 Presence of coronary angioplasty implant and graft; I48.91 Unspecified atrial fibrillation; Z79.82 Long term (current) use of aspirin; Z88.8 Allergy status to other drugs, medicaments and biological substances; Z79.899 Other long term (current) drug therapy
CPT/HCPCS: 80048; 85025; 85347; 92928; 92929; 93459; 99152; 99153; C1725; C1760; C1769; C1874; C1894; C9600; C9601; J1200; J1644; J3010; Q9967

== ENCOUNTER 2024-08-12 15:27 | Outpatient (CLI) | payer OTHER, SELFPAY ==
[2024-08-12 16:10] LABS: Basophils # 0.1 K/mm3 (0-0.2); Basophils % 0.7 % (0.1-2.0); Eosinophils # 0.4 K/mm3 (0.0-0.4); Eosinophils % 3.2 % (0.1-12.0); Hemoglobin 15.9 g/dL (14.1-18.0); Lymphocytes # 2.9 K/mm3 (0.7-4.5); Lymphocytes % 24.1 % (10-50); Mean Corpuscular HGB Conc 33.8 g/dL (31.8-35.4); Mean Corpuscular Hemoglobin 31.9 pg (27.0-31.2); Mean Corpuscular Volume 94.4 fl (80-94); Mean Platelet Volume 11.2 fl (7.4-10.4); Monocytes # 1.4 K/mm3 (0.1-1.0); Monocytes % 11.3 % (1.7-9.3); Neutrophils # 7.2 K/mm3 (1.8-7.8); Neutrophils % 60.3 % (37.0-80.0); Platelet Count 176 K/mm3 (142-424); Red Blood Count 4.98 M/mm3 (4.60-6.20); Red Cell Distribution Width 12.6 % (11.5-17.5)
[2024-08-12 16:40] LABS: Anion Gap 5.5 mEq/L (5-15); Blood Urea Nitrogen 15 mg/dl (9-20); Calcium 10.4 mg/dl (8.4-10.2); Carbon Dioxide 32 mmol/L (22.0-30.0); Chloride 106 mmol/L (98-107); Estimated Glomerular Filt Rate 98 ml/min (>60); GFR (African American) 118 ML/MIN (>60); Glucose 83 mg/dl (74-100); Potassium 4.5 mmoL/L (3.5-5.1); Sodium 139 mmol/L (136-145)
== END 2024-08-12 23:59 | disposition home or self-care (01) ==
LOC: LAB 15:27
PROVIDERS: PCP Internal Medicine Adolescent Medicine; Visit Provider Internal Medicine
DX: I25.10 Atherosclerotic heart disease of native coronary artery without angina pectoris (principal); E78.5 Hyperlipidemia, unspecified; I10 Essential (primary) hypertension
CPT/HCPCS: 36415; 80048; 85025

== ENCOUNTER 2024-08-16 10:59 | Outpatient (CLI) | payer OTHER, SELFPAY ==
--- NOTE | 2024-08-16 | CA_ITS ---
APPROVED REPORT EXAM: Limited 2D Echocardiogram with contrast Supervisor Webbing: Kemi Cullen RT(R) Ht: 5 ft 10 in Wt: 264lbs BSA: 2.35 BP: 101/65 mmHg Indications: CAD, CMP, HFrEF, edema, HTN, DM , hyperlipidemia, SOB, EF 50% echo 07/25/24 but EF on cath 08/09/24 30-35%. Ordered as a limited with definity to reassess EF on echo. Echo Enhancing Agent Indication: Endocardial border delineation Agent(s) / Amount(s) Used: Definity 2 cc M-Mode Dimensions RVDd 2.79 cm (0.9-2.6) LVDd 4.86 cm (3.5-5.7) LVDs 4.01 cm (3.5-5.7) IVSd 0.63 cm (0.6-1.1) PWd 0.89 cm (0.6-1.1) EF (Teich) 36.40% FS 17.50% EDV (Teich) 110.70 mL ESV (Teich) 70.40 mL Other Information Study Quality: Fair Conclusion TTE to evaluate for LV systolic function in the setting of discrepancy of LVEF when comparing prior TTE (without contrast), nuclear stress test, and C. Limited windows were obtained. Administration of ultrasound enhancing agent is performed. The left ventricle is normal in size. There is increased LV wall thickness. There is moderate reduction global LV systolic function. The anterior, inferior, and inferolateral LV burger are severely hypokinetic. LVEF is 30-35%. There is no evidence of LV thrombus with administration of ultrasound enhancing agent. Note the discrepancy in LVEF when comparing this TTE with ultrasound enhancing agent vs. prior recent TTE (07/25/2024) without ultrasound enhancing agent (which likely overestimated the LVEF due to difficulty visualizing the LV endocardial borders). The true LVEF represents the LVEF from this current exam. Electronically signed by : Lucía Pierce MD 08/18/2024 21:37:27
[2024-08-16] MEDS: DEFINITY US ECHO CONTRAST 2ML INJ 2 MG IV (11:58)
== END 2024-08-16 23:59 | disposition home or self-care (01) ==
LOC: RT 11:00
PROVIDERS: PCP Internal Medicine Adolescent Medicine; Visit Provider Nurse Practitioner Family
DX: I25.10 Atherosclerotic heart disease of native coronary artery without angina pectoris (principal); I50.20 Unspecified systolic (congestive) heart failure
CPT/HCPCS: 93308; Q9957

== ENCOUNTER 2024-08-22 07:19 | Outpatient (CLI) | payer OTHER, SELFPAY ==
--- NOTE | 2024-08-22 07:30 | US_ITS ---
FINAL REPORT CLINICAL HISTORY: pain upper -- bloating COMPARISON: None FINDINGS: ULTRASOUND ABDOMEN FINDINGS: The liver demonstrates fatty infiltration. Spleen has a normal sonographic appearance. There is a solitary gallstone present in the gallbladder, measuring up to 8 mm in size. Mild gallbladder wall thickening is noted, measuring up to 5 mm. There is no distention or surrounding fluid present. No biliary ductal dilatation is identified. Kidneys show no evidence of mass or obstruction. Pancreas is not well visualized. IVC and aorta are grossly unremarkable. There is no obvious fluid collection. IMPRESSION: Gallbladder wall thickening and a solitary gallstone measuring up to 8 mm, without evidence of associated distention. No biliary ductal dilatation is identified. Fatty infiltration of the liver. Reviewed, Interpreted and Dictated by Soha Soler MD Transcribed by Venecia Daly Authenticated and . [facility]
== END 2024-08-22 23:59 | disposition home or self-care (01) ==
LOC: RAD 07:20
PROVIDERS: PCP Internal Medicine Adolescent Medicine; Visit Provider Nurse Practitioner Family
DX: R10.84 Generalized abdominal pain (principal); R19.8 Other specified symptoms and signs involving the digestive system and abdomen; K92.1 Melena
CPT/HCPCS: 76700

== ENCOUNTER 2024-08-30 13:48 | Outpatient (CLI) | payer OTHER, SELFPAY ==
--- NOTE | 2024-08-30 14:00 | US_ITS ---
FINAL REPORT CLINICAL HISTORY: claudication, current smoker, HTN, DM, HLD, CAD, PVD, bilateral rest pain. COMPARISON: None FINDINGS: LOWER EXTREMITY SEGMENTAL PRESSURE MEASUREMENTS FINDINGS: Pressure indices are as follows: RIGHT LOWER EXTREMITY: Thigh: 0.81 Calf: 0.75 Ankle, posterior tibial artery: 0.91 Ankle, dorsalis pedis: 0.75 Toe: 0.88 JUAN: 0.91 Comments: Mild PVD which would be localized to the right SFA based on distribution. LEFT LOWER EXTREMITY: Thigh: 1.30 Calf: 0.93 Ankle, posterior tibial artery: 0.96 Ankle, dorsalis pedis: 0.89 Toe: 0.93 JUAN: 0.96 Comments: Findings of mild PVD, likely in the distribution of the SFA or popliteal artery. IMPRESSION: Mild peripheral vascular disease bilateral lower extremities. Reviewed, Interpreted and Dictated by Soha Soler MD Transcribed by Ursula Elizalde Authenticated and [facility]
== END 2024-08-30 23:59 | disposition home or self-care (01) ==
LOC: RT 13:48
PROVIDERS: PCP Internal Medicine Adolescent Medicine; Visit Provider Nurse Practitioner Family
DX: I73.9 Peripheral vascular disease, unspecified (principal); I25.10 Atherosclerotic heart disease of native coronary artery without angina pectoris; I50.20 Unspecified systolic (congestive) heart failure; R93.5 Abnormal findings on diagnostic imaging of other abdominal regions, including retroperitoneum
CPT/HCPCS: 93923

== ENCOUNTER 2024-11-08 10:03 | Outpatient (CLI) | payer OTHER, SELFPAY ==
--- OUTSIDE RECORDS SUMMARY | 2024-11-08 10:06 | XMS_ITS | Clinical Summary ---
Author Organization [facility] Address [address] [place] [address] Care Team Providers Care Fiberglass Technician Name Role Phone Wero Sharma MD Primary Care Provider Family History Medical History Relation Name Comments Cardiac disorder Other Relation Name Status Comments Other Social History Tobacco Use Types Packs/Day Years Used Date Smoking Tobacco: Every Day Sex and Gender Information Value Date Recorded Sex Assigned at Not on file Legal Sex Male 7:29 PM EDT Gender Identity Not on file Sexual Orientation Not on file Last Filed Vital Signs Vital Sign Reading Time Taken Comments Blood Pressure 117/82 02/20/2019 1:10 PM EDT Pulse 74 02/20/2019 1:10 PM EDT Temperature 36.9 C (98.4 F) 02/20/2019 1:10 PM EDT Respiratory Rate - - Oxygen Saturation - - Inhaled Oxygen Concentration - - Weight 108 kg (238 lb 13.9 oz) 02/20/2019 1:10 P M EDT Height 177.8 cm (5' 10 ) 02/20/2019 1:10 PM EDT Body Mass Index 34.27 02/20/2019 1:10 PM EDT Plan of Treatment Not on file Care Teams Fiberglass Technician Relationship Specialty Start Date End Date Wero Sharma MD [address] [place] [address] PCP - General 10/02/20
--- NOTE | 2024-11-08 10:15 | CA_ITS ---
APPROVED REPORT EXAM: Comprehensive 2D, Doppler, and color-flow Echocardiogram Reading Specialist: Azul Garcia, RCS, RVS Ht: 5 ft 10 in Wt: 265lbs BSA: 2.35 BP: 106/74 mmHg Indications: HFrEF, Lifevest-90days 2D Dimensions IVSd 0.93 cm M: 0.6-1.2 LVEF (Visual) 38.50 % PWd 1.08 cm M: 0.6 - 1.2 LVDd 5.12 cm M: 4.2 - 5.9 LVDs 4.16 cm M: 2.5 - 4.0 Left Atrium 3.53 cm M: 3.0 - 4.0 M-Mode Dimensions RVDd 2.07 cm (0.9-2.6) LA Diam 3.07 cm (1.9-4.0) LVDd 5.87 cm (3.5-5.7) LVDs 4.51 cm (3.5-5.7) IVSd 1.11 cm (0.6-1.1) PWd 0.93 cm (0.6-1.1) EF (Teich) 45.70% EPSs 0.89 cm FS 23.20% EDV (Teich) 171.20 mL TAPSE 1.41 (<1.7) ESV (Teich) 92.90 mL LV Diastology E Decel Time 193 (160-240 msec) E/A Ratio 0.72 MED A' 9.90 cm/s LAT A' 12.20 cm/s Aortic Valve RONEN Index 1.30 cm2/m2 AoV Peak Alejandro. 112.0 (50-130 cm/s) AI PHT 309.00 ms AO Peak GR. 5.10 mmHg AO Mean GR. 2.50 (<5 mmHg) AO VTI 22.0 (18-25 cm) RONEN (VTI) 3.13 (2.5-4.5 cm2) Mitral Valve MV A Velocity 92.0 (40-130 cm/s) E/A Ratio 0.72 Pulmonary Valve NC End VMAX 120.0 cm/s Tricuspid Valve TR P. Velocity 191.00 cm/s RAP Estimate 10.00 mmHg RVSP 24.50 mmHg Left Ventricle The left ventricle is normal size. The left ventricular systolic function is mildly reduced. There is normal left ventricular wall thickness. There is mild global hypokinesis present. There is moderate hypokinesis of the mid to distal septal and inferoseptal LV burger. Grade 1 diastolic dysfunction is present. LVEF is 40-45%. Right Ventricle The right ventricle is normal size. The right ventricular systolic function is normal. Atria The left atrium size is normal. The right atrium size is normal. There is no Doppler evidence of interatrial shunt. Aortic Valve Aortic valve is mildly thickened. There is no aortic valvular stenosis. Trace aortic regurgitation. Mitral Valve The mitral valve is normal in structure. No evidence of mitral valve stenosis. Trace mitral regurgitation. Tricuspid Valve Tricuspid valve is grossly normal in structure and function. Trace tricuspid regurgitation. There is insufficient TR jet to estimate RVSP. Pulmonic Valve The pulmonary valve is normal in structure. Trace pulmonic regurgitation. Great Vessels The aortic root is normal in size. IVC is normal in size and collapses >50% with inspiration. Pericardium There is no pericardial effusion. Other Information Study Quality: Fair Conclusion Mildly reduced LV systolic function (LVEF 40-45%). Moderate hypokinesis of the mid to distal septal and inferoseptal LV burger. No significant valvular stenosis or regurgitation. When directly compared to the prior study from 08/08/2024, the LV systolic function has improved, but remains mildly reduced. Electronically signed by : Lucía Pierce MD 11/12/2024 11:02:01
== END 2024-11-08 23:59 | disposition home or self-care (01) ==
LOC: RT 10:04
PROVIDERS: PCP Internal Medicine Adolescent Medicine; Visit Provider Nurse Practitioner Family
DX: I50.20 Unspecified systolic (congestive) heart failure (principal); R93.1 Abnormal findings on diagnostic imaging of heart and coronary circulation
CPT/HCPCS: 93306